=== PATIENT | male | born 1945 | race Caucasian/White ===

== ENCOUNTER 2020-05-06 12:25 | Inpatient (IN) ==
[2020-05-06] MEDS ORDERED: SODIUM CHLORIDE 0.9% 1000ML 1,000 ML IV SCH (12:30)
[2020-05-06] MEDS ORDERED: OPTIRAY 320 125ml IV ONE (12:34)
--- NOTE | 2020-05-06 12:45 | CT Scan Report ---
CT head/brain wo con CLINICAL HISTORY: 75 years-old Male with Stroke evaluation . Acute strokelike symptoms TECHNIQUE: Multiple axial CT images of the head were obtained without contrast. A dose lowering tech nique was utilized adhering to the principles of ALARA. COMPARISON: Head CT 11/02/2011. FINDINGS: No acute intracranial hemorrhage, midline shift, intracranial mass, hydrocephalus, territorial ischem ia or abnormal extra-axial collection. 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 Age-related involutional changes. Patchy white matter hypodensi ties have progressed from comparison and are suggestive of chronic microvascular ischemic disease. Se nescent calcifications of the left lentiform nucleus. Probable remote lacunar infarcts of the basal g [place].Ill-defined decreased attenuation of the right temporal lobe may be artifactual. The calvarium is intact. Prior bilateral lens replacement. The paranasal sinuses, mastoid air cells, and middle ea r cavities are clear. IMPRESSION: 1. No acute intracranial hemorrhage or midline shift. 2. Ill-defined low-attenuation of the right temporal lobe is likely artifactual. A subtle acute infar ct is considered less likely. 3. Age-related involutional changes with chronic microvascular ischemic disease and multiple remote i nfarcts as above. ACT 112: Negative or not required by law. The above report was generated using voice recognition software. It may contain grammatical, syntax o r spelling errors. Electronically signed by: John Reina M.D. 05/06/2020 12:43 PM
--- NOTE | 2020-05-06 12:51 | CT Scan Report ---
CTA ANGIOGRAPHY OF THE HEAD CLINICAL HISTORY: Stroke evaluation COMPARISON STUDY: Head CT November 02, 2011. TECHNIQUE: Helical axial images of the head were obtained following uneventful intravenous administr ation of 119 cc of Optiray 320. Sagittal and coronal reconstructions were viewed as well as maximal i ntensity projections on an independent 3-D workstation. Automated exposure control was utilized for the study. A dose lowering technique was utilized adhering to the principles of ALARA. CT DOSE: 1110.14 mGy.cm FINDINGS: Please note that the head CT will be reported separately. No acute intracranial hemorrhage, midline shift or mass effect is present. Ventricular system is unremarkable. The basilar cisterns ar e patent. The parenchyma is better depicted on the head CT. The bilateral M1, M2, A1 and A2 segments are patent. There is extensive calcified plaque within the bilateral cavernous carotids which makes e valuation for stenosis difficult. There is suspected moderate narrowing of the bilateral cavernous ca rotids. There is mild stenosis of the right MCA. No abrupt vessel cut off is noted. No intraluminal t hrombus is noted. There is severe stenosis of the proximal intracranial portion of the left vertebral artery due to calcified plaque. Bilateral posterior to indicating arteries are noted. There is sever e stenosis of the proximal left posterior cerebral artery. No intracranial aneurysm or dissection is noted. IMPRESSION: 1. No intraluminal thrombus or abrupt vessel cut off identified. 2. Severe multifocal stenoses within the intracranial vessels, as detailed above. Specifically, sever e stenosis of the proximal intracranial portion of the left vertebral artery and the left posterior c erebral artery. 2. No intracranial aneurysm. ACT 112: Negative or not required by law. Electronically signed by: Matthew Mims M.D. 05/06/2020 12:50 PM
--- NOTE | 2020-05-06 12:52 | CT Scan Report ---
CT angio neck with con CLINICAL HISTORY: 75 years-old Male with Stroke evaluation. Acute strokelike symptoms with weaknes s COMPARISON STUDY: Head CT and CTA had of same day TECHNIQUE: Following the IV administration of 119 mL of Optiray 320, CT angiogram of the neck was per formed from the aortic arch to the skull base. Images are reviewed in the axial, sagittal, and mustafa l planes. 3-D MIPS images are created and assessed. IV contrast was administered without complication . All measurements were calculated based on NASCET criteria. A dose lowering technique was utilized adhering to the principles of ALARA. FINDINGS: Mixed plaque of the thoracic aortic arch. Patency of the imaged bilateral subclavian arteri es. Mixed plaque of the common carotid arteries without high-grade stenosis. There is severe mixed pl aque of the bilateral carotid bulbs and proximal internal carotid arteries. This results in less than 50% stenosis on the right and approximately 60% stenosis on the left. There is calcified plaque of t he cavernous and supraclinoid segments of the internal carotid arteries with areas of at least modera te multifocal luminal narrowing. Multifocal luminal narrowing of the intracranial arteries. Codominant and patent vertebral arteries there is moderate stenosis at the origin of the left vertebr al artery secondary to calcified plaque. High-grade stenosis of the V4 segment left vertebral artery secondary to calcified plaque. There is at least moderate multifocal luminal narrowing of the distal bilateral vertebral arteries. Diminutive basilar artery. The lung apices are clear without pneumothorax. Soft tissues are unremarkable. No adenopathy or preve rtebral soft tissue swelling. Multilevel degenerative changes of the spine. No acute fracture. IMPRESSION: 1. 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 This results in less than 50% stenosis on the right and approximately 60% stenosis of the proximal left ICA. 2. Calcific plaque of the V4 segment left vertebral artery results in high-grade stenosis. ACT 112: Negative or not required by law. The above report was generated using voice recognition software. It may contain grammatical, syntax o r spelling errors. Electronically signed by: John Reina M.D. 05/06/2020 12:51 PM
--- NOTE | 2020-05-06 13:02 | Emergency Department Note ---
Impression & Plan CVA (cerebral vascular accident), Acute hyperglycemia, Atrial fibrillation, Abnormal ECG ED Provider Note NAME: DIXON RUIZ AGE: 75 SEX: M : 1945 ARRIVES VIA: Ambulance INFORMANT: Patient, the prehospital personnel, the patient significant other ED PROVIDER(S): Eric Chaparro DO CHIEF COMPLAINT: Weakness HPI: The patient is a 75-year-old male who presented to the emergency department for a possible stroke alert. The patient was made a stroke alert prior to arrival after the artist color separation called requesting a stroke alert on a patient who had a possible last known well time of approximately 8 AM. The history was very difficult to obtain because the patient's severe dysarthria and the patient significant other had a very difficult time articulating the last known well time. For this reason the patient was made a stroke alert until we could further obtain history. The patient had an appointment at [facility] today. He went to this appointment via medical transport van. He did go with his significant other. Apparently the patient was having problems at this appointment and did not speak at all. His spoke for him. The patient is able to articulate somewhat and states that he has no headache. He has no abdominal pain or chest pain. He denies having any nausea. According to the prehospital personnel the patient had right facial droop severe dysarthria to near aphasia as well as right upper extremity weakness. He does have a history of ischemic stroke in the past. He also has a history of peripheral artery disease. The patient was noted to be in atrial fibrillation prior to arrival. According to the prehospital personnel the 911 call was made at 1117 this morning. The artist color separation was on scene at 1138 this morning. ROS: See above HPI for pertinent positives & negatives. A total of 10 systems reviewed and were otherwise negative. PAST MEDICAL HISTORY: See Below PAST SURGICAL HISTORY: See Below FAMILY HISTORY: See Below SOCIAL HISTORY: See Below HOME MEDICATIONS: See Below ALLERGIES: See Below VITALS: See Below PHYSICAL EXAMINATION: GENERAL: The patient is awake and looking around the room. He appears to be very uncomfortable and anxious. EYES: The conjunctivae are clear. The pupils are round and reactive. EARS, NOSE, MOUTH AND THROAT: The nose is without any evidence of any deformity. Mucous membranes are moist. Tongue is midline. NECK: The neck is nontender and supple. RESPIRATORY: Normal respiratory effort is noted there is no evidence of wheezing rhonchi or rales CARDIOVASCULAR: Irregular rhythm was noted to auscultation. No definite murmur could be heard. GASTROINTESTINAL: The abdomen is moderately distended. There was no tenderness guarding or rigidity noted. MUSCULOSKELETAL/EXTREMITIES: Bilateral lower extremity amputations were noted. SKIN: There is no obvious evidence of any rash. There are no petechiae, pallor or cyanosis noted. NEUROLOGIC: The patient is awake and alert. He does follow commands slowly but appropriately. He is aphasic and I am unable to assess orientation at this time. The patient has a slight right-sided facial droop noted mostly at the corner of the mouth. He does not appear to have any forehead involvement. The patient has no drift in the upper extremities. He is able to hold each leg off the bed for greater than 5 seconds. The patient has symmetric patient accounts clerk strengths. MEDICAL DECISION MAKING: The patient is a 75-year-old male who presented to the emergency department for an evaluation of acute neurologic deficits. The patient was made a stroke alert prior to arrival because his history was very unclear and the onset of symptoms was very unclear. Ultimately it does appear the patient may have had the symptoms since this morning when he got up to go to doctor's appointment. His symptoms did slowly improve compared to the report we got from the artist color separation. Patient no longer has a drift his facial droop is very minimal and his dysar thria is continuing. I discussed patient's laboratory and radiographic studies with him as well as his significant other. The stroke neurologist from [facility] also evaluated the patient. At this time he is not a candidate for TPA given the onset of symptoms being early this morning. He also does not appear to have a large vessel occlusion. He was found to be in atrial fibrillation in the emergency department. I discussed his case with the on-call [facility] hospitalist. They will evaluate the patient in the emergency department for further management and disposition. He was also treated with IV fluids and IV insulin. Triage Nursing notes reviewed. Prior medical records reviewed Vital Signs: reviewed and remarkable for hypertension Differential diagnosis: Infection, dehydration, metabolic abnormality, hypo/hyperglycemia, electrolyte disturbance, anemia, hypoxia, cardiac sources, intracerebral event, toxicologic, neurologic, as well as other pathologies. ER treatment provided: See below Diagnostics interpreted by me: ECG: EKG was obtained in the emergency department. My interpretation is atrial fibrillation at 85 bpm. No PVCs were noted. Diffuse apical and low lateral ST depressions were noted. This was compared to a tracing from June 19, 2018. Atrial fibrillation has replaced normal sinus rhythm. The ST segment abnormalities are new compared to the previous tracing. Cardiac Monitoring: An order was placed for continuous cardiac monitoring. The monitor shows a rate of 89 with atrial fibrillation rhythm. Laboratory studies: As stated above and show below. Imaging studies: See below Consultation(s): 1240: I discussed this case with Dr. Olguin who is on-call for the [facility] stroke neurology team. She will evaluate the patient as we [facility] try to obtain history to get a better last known well time. 1400: I discussed this case with Bianca who is on-call for the [facility] hospitalist group. They will evaluate the patient in the emergency department for further management disposition. ED COURSE: Procedures: none PDMP:reviewed and no issues Critical Care: None Past Med/Surg History Medical History Anemia (Chronic) Arthritis (Chronic) CAD (coronary artery disease) (Chronic) s/p stent placement. 1 stent placed. patient thinks this was 3-4 years ago. CKD (chronic kidney disease), stage III (Chronic) CVA (cerebral vascular accident) (Chronic) Patient unsure of when this happened. Denied any current deficits related to the stroke. Depression (Chronic) Diabetes mellitus, type II (Chronic) GERD (gastroesophageal reflux disease) (Chronic) HLD (hyperlipidemia) (Chronic) HTN (hypertension) (Chronic) Neuropathy, diabetic (Chronic) Non-healing wound of amputation stump (Acute) s/p left 3rd toe ampuation on 06/24 PVD (peripheral vascular disease) (Chronic) Surgical History Amputated toe of left foot 06/2018. MAC. 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, former substance user) Preferred Language: Citizen Of [place] Communication Ability: Effective Visual Impairment: No Limitations Address Change Clerk Required: No Beliefs That Will Affect Care: None marital status: Current Living Situation: Spouse Other Information That Helps Us Care for You: No Feels Safe at Home: Yes Safety Concerns: Feels Safe At This Time Allergies Allergies Allergy/AdvReac Type Severity Reaction Status Date / Time No Known Allergies Allergy Unknown NONE Verified 05/06/20 13:38 Home Meds Home Medications Medication Instructions Recorded Confirmed acetaminophen [Children's Tylenol] 0 mg PO QID PRN 05/06/20 05/06/20 alum-mag hydroxide-simeth [Mintox 10 ml PO TID PRN 05/06/20 05/06/20 Maximum Strength] ascorbic acid (vitamin C) 500 mg PO TID 05/06/20 05/06/20 aspirin [Aspirin Childrens] 81 mg PO DAILY 05/06/20 05/06/20 atorvastatin 40 mg PO HS 05/06/20 05/06/20 bethanechol chloride 25 mg PO TID 05/06/20 05/06/20 calcium carbonate [Tums Extra 300 mg PO UD 05/06/20 05/06/20 Strength Smoothies] carvedilol 12.5 mg PO BID 05/06/20 05/06/20 cholecalciferol (vitamin D3) 50 mcg PO DAILY 05/06/20 05/06/20 [Vitamin D3] ferrous sulfate 220 mg PO TID 05/06/20 05/06/20 gabapentin 300 mg PO QID 05/06/20 05/06/20 insulin aspart U-100 [Novolog 10 unit SUBCUT BIDM 05/06/20 05/06/20 Flexpen U-100 Insulin] insulin detemir U-100 25 unit SUBCUT HS 05/06/20 05/06/20 melatonin 6 mg PO HS PRN 05/06/20 05/06/20 exwfyzfd-tfy-qcodjol gluconate 5 ml PO DAILY 05/06/20 05/06/20 [Centrum] sertraline 0 mg PO DAILY 05/06/20 05/06/20 tamsulosin [Flomax] 0.4 mg PO BID 05/06/20 05/06/20 Results & Data (ED) Vital Signs Vital Signs - 24 hr 05/06/20 12:50 05/06/20 13:08 05/06/20 13:18 Temperature 36.7 C Temperature Source Oral Pulse Rate 85 89 85 Pulse Rate from SpO2 Sensor 86 Respiratory Rate 20 20 21 Blood Pressure 193/90 H 196/91 H 168/90 H Blood Pressure Mean 124 110 137 Pulse Oximetry 96 96 96 Oxygen Delivery Method Room Air Room Air Room Air Sepsis Recent Fever Within 48 Hours No Sepsis New/Unexplained Change in Mental Status Yes Sepsis Action Taken by Nursing No Action Required 05/06/20 13:27 05/06/20 13:30 Temperature Temperature Source Pulse Rate 82 82 Pulse Rate from SpO2 Sensor 83 82 Respiratory Rate 20 20 Blood Pressure 166/89 H 153/88 H Blood Pressure Mean 111 104 Pulse Oximetry 97 95 Oxygen Delivery Method Room Air Room Air Sepsis Recent Fever Within 48 Hours Sepsis New/Unexplained Change in Mental Status Sepsis Action Taken by [facility] Medications Current Medication List: was personally reviewed by me Laboratory Data Attestation: I reviewed the patient's lab results. Result diagrams: 05/07/20 06:26 05/07/20 06:26 Lab Results 05/06/20 05/06/20 05/06/20 Range/Units 12:22 12:22 12:22 WBC 11.92 H (4.8-10.8) K/uL RBC 3.60 L (4.7-6.1) M/uL Hgb 11.2 L (14.0-18.0) g/dL Hct 33.8 L (42-52) % MCV 93.9 (80-100) fL MCH 31.1 (25-34) pg MCHC 33.1 (32-36) g/dL RDW Std Deviation 43.5 (36.4-46.3) fL RDW Coeff of Star 12.7 (11.5-14.5) % Plt Count 293 (130-400) K/uL MPV 10.7 H (7.4-10.4) fL Immature Gran % (Auto) 1.4 % Neut % (Auto) 58.6 % Lymph % (Auto) 28.7 % [place] % (Auto) 7.6 % Eos % (Auto) 3.4 % Baso % (Auto) 0.3 % Neut # (Auto) 6.99 H (1.4-6.5) K/uL Lymph # (Auto) 3.42 H (1.2-3.4) K/uL [place] # (Auto) 0.90 H (0.11-0.59) K/uL Eos # (Auto) 0.40 (0-0.5) K/uL Baso # (Auto) 0.04 (0-0.2) K/uL Immature Gran # (Auto) 0.17 H (0.00-0.02) K/uL PT 10.0 (9.0-12.0) Seconds INR 0.9 (0.9-1.1) APTT 22.0 (21.0-31.0) Seconds PTT Ratio 0.8 Sodium 136 (136-145) mmol/L Potassium 4.8 (3.5-5.1) mmol/L Chloride 104 (98-107) mmol/L Carbon Dioxide 23 (21-32) mmol/L Anion Gap 9.0 (3-11) BUN 25 H (7-18) mg/dl Creatinine 1.88 H (0.6-1.4) mg/dl Est Cr Clr Drug Dosing Not Reportable Est GFR ( Amer) 40.2 Est GFR (Non-Af Amer) 34.7 BUN/Creatinine Ratio 13.1 (10-20) Glucose 335 H* (70-99) mg/dl POC Glucose (70-99) mg/dl Calcium 9.9 (8.5-10.1) mg/dl Magnesium 1.9 (1.8-2.4) mg/dl Total Bilirubin 0.3 (0.2-1) mg/dl AST 24 (15-37) U/L ALT 29 (12-78) U/L Alkaline Phosphatase 70 (45-117) U/L Troponin I < 0.015 (0-0.045) ng/ml Total Protein 6.9 (6.4-8.2) gm/dl Albumin 2.9 L (3.4-5.0) gm/dl Globulin 4.0 (2.5-4.0) gm/dl Albumin/Globulin Ratio 0.7 L (0.9-2) Beta-Hydroxybutyric Acd (0.2-2.81) mg/dl 05/06/20 05/06/20 Range/Units 12:46 14:05 WBC (4.8-10.8) K/uL RBC (4.7-6.1) M/uL Hgb (14.0-18.0) g/dL Hct (42-52) % MCV (80-100) fL MCH (25-34) pg MCHC (32-36) g/dL RDW Std Deviation (36.4-46.3) fL RDW Coeff of Star (11.5-14.5) % Plt Count (130-400) K/uL MPV (7.4-10.4) fL Immature Gran % (Auto) % Neut % (Auto) % Lymph % (Auto) % [place] % (Auto) % Eos % (Auto) % Baso % (Auto) % Neut # (Auto) (1.4-6.5) K/uL Lymph # (Auto) (1.2-3.4) K/uL [place] # (Auto) (0.11-0.59) K/uL Eos # (Auto) (0-0.5) K/uL Baso # (Auto) (0-0.2) K/uL Immature Gran # (Auto) (0.00-0.02) K/uL PT (9.0-12.0) Seconds INR (0.9-1.1) APTT (21.0-31.0) Seconds PTT Ratio Sodium (136-145) mmol/L Potassium (3.5-5.1) mmol/L Chloride (98-107) mmol/L Carbon Dioxide (21-32) mmol/L Anion Gap (3-11) BUN (7-18) mg/dl Creatinine (0.6-1.4) mg/dl Est Cr Clr Drug Dosing Est GFR ( Amer) Est GFR (Non-Af Amer) BUN/Creatinine Ratio (10-20) Glucose (70-99) mg/dl POC Glucose 366 H* 369 H* (70-99) mg/dl Calcium (8.5-10.1) mg/dl Magnesium (1.8-2.4) mg/dl Total Bilirubin (0.2-1) mg/dl AST (15-37) U/L ALT (12-78) U/L Alkaline Phosphatase (45-117) U/L Troponin I (0-0.045) ng/ml Total Protein (6.4-8.2) gm/dl Albumin (3.4-5.0) gm/dl Globulin (2.5-4.0) gm/dl Albumin/Globulin Ratio (0.9-2) Beta-Hydroxybutyric Acd (0.2-2.81) mg/dl Administered Medications Aspirin (Ecotrin Ectab) 81 mg PO [facility] Stop: 06/05/20 17:29 Last Admin: 05/07/20 09:14 Dose: 81 mg Documented by: [id number] Admin: 05/06/20 18:11 Dose: 81 mg Documented by: [id number] Atorvastatin Calcium (Lipitor) 40 mg PO [facility] Stop: 06/05/20 17:29 Last Admin: 05/07/20 09:14 Dose: 40 mg Documented by: [id number] Admin: 05/06/20 18:11 Dose: 40 mg Documented by: [id number] Clopidogrel Bisulfate (Plavix) 75 mg PO [facility] Stop: 06/06/20 08:59 Last Admin: 05/07/20 09:14 Dose: 75 mg Documented by: [id number] Heparin Sodium (Porcine) (Heparin Sodium (Porcine)) 5,000 units SQ Q8 [facility] Stop: 06/05/20 21:59 Last Admin: 05/07/20 13:40 Dose: Not Given Documented by: [id number] Admin: 05/07/20 06:20 Dose: 5,000 units Documented by: [id number] Cosigned by: [id number] Admin: 05/06/20 21:37 Dose: 5,000 units Documented by: [id number] Cosigned by: [id number] Lorazepam (Ativan) 0.5 mg in 1 mls @ 1 mls/min IV TODAY@1215 [facility] Stop: 05/07/20 16:00 Last Admin: 05/07/20 12:23 Dose: 1 mls/min Documented by: [id number] Insulin Aspart (Novolog Flexpen) 0 units SC ACHS [facility]; Protocol Stop: 06/06/20 07:29 Last Admin: 05/07/20 12:26 Dose: 5 units Documented by: [id number] Cosigned by: [id number] Admin: 05/07/20 09:16 Dose: 5 units Documented by: [id number] Cosigned by: [id number] Discontinued Medications Alprazolam (Xanax) 0.5 mg PO NOW STA Stop: 05/07/20 10:12 Last Admin: 05/07/20 11:45 Dose: Not Given Documented by: [id number] Alprazolam (Xanax) Confirm Administered Dose 0.5 mg .ROUTE .STK-MED ONE Stop: 05/07/20 10:14 Last Admin: 05/07/20 11:46 Dose: Not Given Documented by: [id number] Aspirin (Aspirin) 300 mg IA ONE ONE Stop: 05/06/20 16:01 Last Admin: 05/06/20 17:06 Dose: Not Given Documented by: [id number] Clopidogrel Bisulfate (Plavix) 300 mg PO NOW STA Stop: 05/06/20 17:21 Last Admin: 05/06/20 18:10 Dose: 300 mg Documented by: [id number] Sodium Chloride (Nss 1000ml) 1,000 mls @ 50 mls/hr IV .Q20H MIK Stop: 06/05/20 12:29 Last Infusion: 05/06/20 15:50 Dose: 0 mls/hr Documented by: [id number] Admin: 05/06/20 13:12 Dose: 50 mls/hr Documented by: [id number] Sodium Chloride (Nss 1000ml) 500 mls @ 999 mls/hr IV .Q31M ONE Stop: 05/06/20 14:13 Last Infusion: 05/06/20 14:56 Dose: 0 mls/hr Documented by: [id number] Admin: 05/06/20 14:12 Dose: 999 mls/hr Documented by: [id number] Sodium Chloride (Nss 1000ml) 1,000 mls @ 50 mls/hr IV .Q20H MIK Stop: 05/08/20 07:49 Last Infusion: 05/07/20 13:38 Dose: 0 mls/hr Documented by: [id number] Infusion: 05/07/20 06:00 Dose: 50 mls/hr Documented by: [id number] Admin: 05/07/20 02:27 Dose: 100 mls/hr Documented by: [id number] Infusion: 05/07/20 02:27 Dose: 100 mls/hr Documented by: [id number] Admin: 05/06/20 17:06 Dose: 100 mls/hr Documented by: [id number] Insulin Aspart (Novolog Flexpen) 0 units SC Q4 MIK; Protocol Stop: 06/05/20 16:14 Last Admin: 05/06/20 21:36 Dose: 5 units Documented by: [id number] Cosigned by: [id number] Admin: 05/06/20 17:05 Dose: 7 units Documented by: [id number] Cosigned by: [id number] Insulin Aspart (Novolog Flexpen) 0 units SC 0000,0400 [facility]K; Protocol Stop: 05/07/20 04:01 Last Admin: 05/07/20 05:02 Dose: 1 units Documented by: [id number] Cosigned by: [id number] Admin: 05/07/20 01:09 Dose: 2 units Documented by: [id number] Cosigned by: [id number] Insulin Detemir (Levemir Flextouch) 25 units SC ONE ONE; Protocol Stop: 05/06/20 17:31 Last Admin: 05/06/20 18:12 Dose: 25 units Documented by: [id number] Cosigned by: [id number] Insulin Detemir (Levemir Flextouch) 8 units SC ONE ONE; Protocol Stop: 05/07/20 08:01 Last Admin: 05/07/20 09:15 Dose: 8 units Documented by: [id number] Cosigned by: [id number] Insulin Human Regular (Novolin R U-100 Per Unit) 4 units IV NOW STA Stop: 05/06/20 13:44 Last Admin: 05/06/20 14:12 Dose: 4 units Documented by: [id number] Cosigned by: [id number] Ioversol (Optiray 320 125ml) 119 ml IV ONCE ONE Stop: 05/06/20 12:35 Last Admin: 05/06/20 12:35 Dose: 119 ml Documented by: [id number] Labetalol HCl (Normodyne) 10 mg IV NOW STA Stop: 05/06/20 13:18 Last Admin: 05/06/20 14:19 Dose: Not Given Documented by: [id number] Metoprolol Tartrate (Lopressor) 2.5 mg IV NOW STA Stop: 05/07/20 05:56 Last Admin: 05/07/20 06:27 Dose: 2.5 mg Documented by: [id number] Olanzapine (Zyprexa) 2.5 mg IM NOW STA Stop: 05/07/20 03:56 Last Admin: 05/07/20 04:40 Dose: 2.5 mg Documented by: [id number] Imaging Data Radiologist's Impression: XR chest 1V portable CLINICAL HISTORY: weak COMPARISON STUDY: Chest radiograph June 19, 2018. FINDINGS: Lung volumes are at the lower limits of normal. Lungs are clear. There is no pneumothorax or pleural effusion. Cardiomegaly is unchanged. Mediastinal contours are normal. There is no evidence for pulmonary edema. IMPRESSION: No acute cardiopulmonary findings. No change in appearance of the chest. ACT 112: Negative or not required by law. Electronically signed by: Matthew Mims M.D. 05/06/2020 1:05 PM Dictated: 05/06/20 1304 Transcribed: 05/06/[address] angio neck with con CLINICAL HISTORY: 75 years-old Male with Stroke evaluation. Acute strokelike symptoms with weakness COMPARISON STUDY: Head CT and CTA had of same day TECHNIQUE: Following the IV administration of 119 mL of Optiray 320, CT angiogra m of the neck was performed from the aortic arch to the skull base. Images are reviewed in the axial, sagittal, and coronal planes. 3-D MIPS images are created and assessed. IV contrast was administered without complication. All measurements were calculated based on NASCET criteria. A dose lowering technique was utilized adhering to the principles of ALARA. FINDINGS: Mixed plaque of the thoracic aortic arch. Patency of the imaged bilateral subclavian arteries. Mixed plaque of the common carotid arteries without high-grade stenosis. There is severe mixed plaque of the bilateral carotid bulbs and proximal internal carotid arteries. This results in less than 50% stenosis on the right and approximately 60% stenosis on the left. There is calcified plaque of the cavernous and supraclinoid segments of the internal carotid arteries with areas of at least moderate multifocal luminal narrowing. Multifocal luminal narrowing of the intracranial arteries. Codominant and patent vertebral arteries there is moderate stenosis at the origin of the left vertebral artery secondary to calcified plaque. High-grade stenosis of the V4 segment left vertebral artery secondary to calcified plaque. There is at least moderate multifocal luminal narrowing of the distal bilateral vertebral arteries. Diminutive basilar artery. The lung apices are clear without pneumothorax. Soft tissues are unremarkable. No adenopathy or prevertebral soft tissue swelling. Multilevel degenerative changes of the spine. No acute fracture. IMPRESSION: 1. Mixed plaque of the bilateral carotid bulbs and proximal internal carotid arteries, left greater than right. This results in less than 50% stenosis on the right and approximately 60% stenosis of the proximal left ICA. 2. Calcific plaque of the V4 segment left vertebral artery results in high-grade stenosis. ACT 112: Negative or not required by law. The above report was generated using voice recognition software. It may contain grammatical, syntax or spelling errors. Electronically signed by: John Reina M.D. 05/06/2020 12:51 PM Dictated: 05/06/20 1244 Transcribed: 05/06/20 1244 CTA ANGIOGRAPHY OF THE HEAD CLINICAL HISTORY: Stroke evaluation COMPARISON STUDY: Head CT November 02, 2011. TECHNIQUE: Helical axial images of the head were obtained following uneventful intravenous administration of 119 cc of Optiray 320. Sagittal and coronal reconstructions were viewed as well as maximal intensity projections on an independent 3-D workstation. Automated exposure control was utilized for the study. A dose lowering technique was utilized adhering to the principles of ALARA. CT DOSE: 1110.14 mGy.cm FINDINGS: Please note that the head CT will be reported separately. No acute intracranial hemorrhage, midline shift or mass effect is present. Ventricular system is unremarkable. The basilar cisterns are patent. The parenchyma is better depicted on the head CT. The bilateral M1, M2, A1 and A2 segments are patent. There is extensive calcified plaque within the bilateral cavernous carotids which makes evaluation for stenosis difficult. There is suspected moderate narrowing of the bilateral cavernous carotids. There is mild stenosis of the right MCA. No abrupt vessel cut off is noted. No intraluminal thrombus is noted. There is severe stenosis of the proximal intracranial portion of the left vertebral artery due to calcified plaque. Bilateral posterior to indicating arteries are noted. There is severe stenosis of the proximal left posterior cerebral artery. No intracranial aneurysm or dissection is noted. IMPRESSION: 1. No intraluminal thrombus or abrupt vessel cut off identified. 2. Severe multifocal stenoses within the intracranial vessels, as detailed above. Specifically, severe stenosis of the proximal intracranial portion of the left vertebral artery and the left posterior cerebral artery. 2. No intracranial aneurysm. ACT 112: Negative or not required by law. Electronically signed by: Matthew Mims M.D. 05/06/2020 12:50 PM Dictated: 05/06/20 1242 Transcribed: 05/06/[address] head/brain wo con CLINICAL HISTORY: 75 years-old Male with Stroke evaluation . Acute strokelike symptoms TECHNIQUE: Multiple axial CT images of the head were obtained without contrast. A dose lowering technique was utilized adhering to the principles of ALARA. COMPARISON: Head CT 11/02/2011. FINDINGS: No acute intracranial hemorrhage, midline shift, intracranial mass, hydrocephalus, territorial ischemia or abnormal extra-axial collection. 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 Age-related involutional changes. Patchy white matter hypodensities have progressed from comparison and are suggestive of chronic microvascular ischemic disease. Senescent calcifications of the left lentiform nucleus. Probable remote lacunar infarcts of the basal g[place].Ill-defined decreased attenuation of the right temporal lobe may be artifactual. The calvarium is intact. Prior bilateral lens replacement. The paranasal sinuses, mastoid air cells, and middle ear cavities are clear. IMPRESSION: 1. No acute intracranial hemorrhage or midline shift. 2. Ill-defined low-attenuation of the right temporal lobe is likely artifactual. A subtle acute infarct is considered less likely. 3. Age-related involutional changes with chronic microvascular ischemic disease and multiple remote infarcts as above. ACT 112: Negative or not required by law. The above report was generated using voice recognition software. It may contain grammatical, syntax or spelling errors. Electronically signed by: John Reina M.D. 05/06/2020 12:43 PM Dictated: 05/06/20 1237 Transcribed: 05/06/20 1237 Blood Pressure Blood Pressure Findings: Elevated blood pressure Blood Pressure Disposition: further management by hospitalist Discharge Plan Visit Data *Final* Discharge Date/Time: 05/06/20 15:29 Chief Complaint: Stroke Alert Stated Complaint: stroke alert ED Provider: Eric Chaparro Discharge Problem: CVA (cerebral vascular accident), Acute hyperglycemia, Atrial fibrillation, A bnormal ECG Patient Disposition: Admitted As Inpatient Condition: Good Discharge Instructions Interventions: ED Discharge Assessment Last Done: 05/06/20 15:29 Discharge Problem: CVA (cerebral vascular accident) Qualifiers: CVA mechanism: unspecified Qualified Code(s): I63.9 - Cerebral infarction, unspecified Atrial fibrillation Qualifiers: Atrial fibrillation type: unspecified Qualified Code(s): I48.91 - Unspecified atrial fibrillation
--- NOTE | 2020-05-06 13:06 | XRay Report ---
XR chest 1V portable CLINICAL HISTORY: weak COMPARISON STUDY: Chest radiograph June 19, 2018. FINDINGS: Lung volumes are at the lower limits of normal. Lungs are clear. There is no pneumothorax o r pleural effusion. Cardiomegaly is unchanged. Mediastinal contours are normal. There is no evidence for pulmonary edema. IMPRESSION: No acute cardiopulmonary findings. No change in appearance of the chest. ACT 112: Negative or not required by law. Electronically signed by: Matthew Mims M.D. 05/06/2020 1:05 PM
[2020-05-06 13:09] LABS: Basophils # (auto) 0.04 K/uL (0-0.2); Basophils % (auto) 0.3 %; Eosinophils % (auto) 3.4 %; Hematocrit (blood only) 33.8 % (42-52); Hemoglobin 11.2 g/dL (14.0-18.0); Immature Granulocytes # (auto) 0.17 K/uL (0.00-0.02); Immature Granulocytes % (auto) 1.4 %; Lymphocytes # (auto) 3.42 K/uL (1.2-3.4); Lymphocytes % (auto) 28.7 %; Mean Corpuscular Hemoglobin 31.1 pg (25-34); Mean Corpuscular Hgb Conc 33.1 g/dL (32-36); Mean Corpuscular Volume 93.9 fL (80-100); Mean Platelet Volume 10.7 fL (7.4-10.4); Monocytes % (auto) 7.6 %; Neutrophils # (auto) 6.99 K/uL (1.4-6.5); Neutrophils % (auto) 58.6 %; Platelet Count 293 K/uL (130-400); RDW Coefficient of Variation 12.7 % (11.5-14.5); RDW Standard Deviation 43.5 fL (36.4-46.3); White Blood Count 11.92 K/uL (4.8-10.8)
[2020-05-06] MEDS ORDERED: LABETALOL HCL IV 5 MG/ML 20ML IV STA (13:17)
[2020-05-06 13:25] LABS: INR 0.9 (0.9-1.1); Partial Thromboplastin Ratio 0.8
--- OUTSIDE RECORDS SUMMARY | 2020-05-06 13:25 | External Medical Summary | Continuity of Care Document ---
:1945 Author Name Rocio Thomson, Provider Address Unavailable Unavailable , Care Team Providers Name Role Phone Loreto Dickinson DO Unavailable [email or web address], NO Unavailable Unavailable Unavailable Unavailable Unavailable Problems Active medical history not documented Allergies and Adverse Reactions Allergy history not documented Medications Medications not documented Procedures Procedures not documented Immunizations Immunizations not documented Plan of Treatment Planned Observations Planned Goals not documented Results No Known Results Results not documented Encounters Appointment; Loreto Dickinson DO 30-Oct-2018 11:00 Encounter Diagnosis: Problem not documented
[2020-05-06 13:37] LABS: Alanine Aminotransferase 29 U/L (12-78); Albumin Globulin Ratio 0.7 (0.9-2); Albumin Level 2.9 gm/dl (3.4-5.0); Alkaline Phosphatase 70 U/L (45-117); Aspartate Aminotransferase 24 U/L (15-37); BUN Creatinine Ratio 13.1 (10-20); Bilirubin,Total 0.3 mg/dl (0.2-1); Blood Urea Nitrogen 25 mg/dl (7-18); Calcium 9.9 mg/dl (8.5-10.1); Carbon Dioxide 23 mmol/L (21-32); Chloride 104 mmol/L (98-107); Est GFR (African American) 40.2; Est GFR (Non-African American) 34.7; Glucose 335 mg/dl (70-99); Magnesium 1.9 mg/dl (1.8-2.4); Potassium 4.8 mmol/L (3.5-5.1); Sodium 136 mmol/L (136-145); Total Protein 6.9 gm/dl (6.4-8.2); Troponin I < 0.015 ng/ml (0-0.045)
[2020-05-06] MEDS ORDERED: SODIUM CHLORIDE 0.9% 1000ML 500 ML IV ONE (13:43)
[2020-05-06] MEDS ORDERED: NovoLIN-R INSULIN PER UNIT CHARGE IV STA (13:43)
--- NOTE | 2020-05-06 15:23 | History & Physical Report ---
Date of Service May 06, 2020 Assessment & Plan (1) Dysphasia: (2) Stroke-like symptoms: Pt is 75 y/o M with PMH CVA, DM II, HTN, HLD, CAD s/p stent, PVD, s/p bilateral BKA, CKD III presented to ER for right arm weakness and dysphasia. Reported pt was not very talkative this morning and not "acting right" per pt's around 7am. Then around 9 AM today and noticed that patient's speech was garbled and then he could no longer talk. She reports they later called EMS and patient was transported to [facility] ER. Upon ER arrival patient with expressive aphasia, dysarthria, right facial droop, right arm weakness. CT HEAD: No acute intracranial hemorrhage or midline shift. Ill-defined low- attenuation of the right temporal lobe is likely artifactual. A subtle acute infarct is considered less likely. Age-related involutional changes with chronic microvascular ischemic disease and multiple remote infarcts as above. CTA HEAD:1. No intraluminal thrombus or abrupt vessel cut off identified. 2. Severe multifocal stenoses within the intracranial vessels, as detailed above. Specifically, severe stenosis of the proximal intracranial portion of the left vertebral artery and the left posterior cerebral artery. 2. No intracranial aneurysm. CTA NECK: 1. Mixed plaque of the bilateral carotid bulbs and proximal internal carotid arteries, left greater than right. This results in less than 50% stenosis on the right and approximately 60% stenosis of the proximal left ICA. 2. Calcific plaque of the V4 segment left vertebral artery results in high-grade stenosis. Neuro tele stroke at [facility] consulted and patient outside TPA window and recommended loading with plavix, starting plavix daily and continuing daily aspirin 81mg, statin -Tele to monitor for arrhythmias; ER staff report EMS reported a-fib -EKG in am -lipid panel and A1c in am -MRI brain -echo with bubble study -aspiration precautions - Will make NPO and hold oral meds at this time as did not pass dysphagia screen -Speech consult -Plan to start Plavix and continue aspirin, atorvastatin when able to take p.o. -PT/OT consult -allow permissive HTN, labetaolol SBP>220 or DBP>120 in 1st 24 hrs -neurology consult (3) Abdominal discomfort: Pt had pointed to lower abdomen as area of discomfort. Denies N/V/D/C, dysuria -KUB unremarkable -Obtain UA -Closely monitor and if worsening discomfort consider further imaging (4) Diabetes mellitus, type II: A1c 9.5 in 2018 Random BSG 335 -NovoLog Lantus sliding scale per protocol -Glycemic consult for assistance (5) HTN (hypertension): -Continue carvedilol when able to take p.o. -We will allow permissive hypertension initially (6) CAD (coronary artery disease): S/p stent -Continue carvedilol, aspirin, atorvastatin when able to take p.o. (7) CKD (chronic kidney disease), stage III: Cr: 1.8. Records from 2018 with Cr: ~1.6 -Renal functions, avoid nephrotoxic agents when possible (8) PVD (peripheral vascular disease): S/p bilateral BKA (9) Anemia: Chronic anemia Hgb: 11.2. Hgb: 9-11 in 2018 -Plan to resume iron supplement when able to take p.o. DVT Prophylaxis -Heparin SQ Full Code as per discussion with pt and pt's Maria M Follows with [facility] for routine care Pt was seen and care coordinated with Dr Padilla. See addendum History of Present Illness Chief Complaint: Dysphasia and right arm weakness Primary Care Provider: [facility] Pt is 75 y/o M with PMH CVA, DM II, HTN, HLD, CAD s/p stent, PVD, s/p bilateral BKA, CKD III presented to ER for right arm weakness and dysphasia. History obtained from ER staff and patient's . Limited history can be obtained from patient secondary to dysphasia. Was able to speak with pt's on the phone. She reports pt was up and out to a doctor's appointment today around 7 AM. Patient's states that patient seemed "not acting right this morning" he was not talking much. Reports returned home around 9 AM today and noticed that patient's speech was garbled and then he could no longer talk. She reports they later called EMS and patient was transported to [facility] ER. Upon ER arrival patient with expressive aphasia, dysarthria, right facial droop, right arm weakness. CTA head with high-grade stenosis left [employer] REPRES[employer] and left intracranial vertebral artery. Neuro tele stroke consulted and patient outside TPA window. Patient is able to shake head "yes or no" to questions. He denies headache, dizziness, vision changes. Reports decreased sensation to right side of face with palpation. He points to lower abdomen as area of discomfort. Denies nausea, vomiting, diarrhea, fever, chills, dysuria, hematuria. Patient's reports that patient took his morning medicines today. Pt has prosthetics legs however hasn't been using. Pt has med list from [facility] dated 05/02/2020. Allergies Allergy/AdvReac Type Severity Reaction Status Date / Time No Known Allergies Allergy Unknown NONE Verified 05/06/20 13:38 Home Medications Home Medications Medication Instructions Recorded Confirmed Type acetaminophen [Children's Tylenol] 0 mg PO QID PRN 05/06/20 05/06/20 History alum-mag hydroxide-simeth [Mintox 10 ml PO TID PRN 05/06/20 05/06/20 History Maximum Strength] ascorbic acid (vitamin C) 500 mg PO TID 05/06/20 05/06/20 History aspirin [Aspirin Childrens] 81 mg PO DAILY 05/06/20 05/06/20 History atorvastatin 40 mg PO HS 05/06/20 05/06/20 History bethanechol chloride 25 mg PO TID 05/06/20 05/06/20 History calcium carbonate [Tums Extra 300 mg PO UD 05/06/20 05/06/20 History Strength Smoothies] carvedilol 12.5 mg PO BID 05/06/20 05/06/20 History cholecalciferol (vitamin D3) 50 mcg PO DAILY 05/06/20 05/06/20 History [Vitamin D3] ferrous sulfate 220 mg PO TID 05/06/20 05/06/20 History gabapentin 300 mg PO QID 05/06/20 05/06/20 History insulin aspart U-100 [Novolog 10 unit SUBCUT BIDM 05/06/20 05/06/20 History Flexpen U-100 Insulin] insulin detemir U-100 25 unit SUBCUT HS 05/06/20 05/06/20 History melatonin 6 mg PO HS PRN 05/06/20 05/06/20 History wjpcmbln-ixd-yvcgjpd gluconate 5 ml PO DAILY 05/06/20 05/06/20 History [Centrum] sertraline 0 mg PO DAILY 05/06/20 05/06/20 History tamsulosin [Flomax] 0.4 mg PO BID 05/06/20 05/06/20 History Past Med/Surg History Medical History Anemia (Chronic) Arthritis (Chronic) CAD (coronary artery disease) (Chronic) s/p stent placement. 1 stent placed. patient thinks this was 3-4 years ago. CKD (chronic kidney disease), stage III (Chronic) CVA (cerebral vascular accident) (Chronic) Patient unsure of when this happened. Denied any current deficits related to the stroke. Depression (Chronic) Diabetes mellitus, type II (Chronic) GERD (gastroesophageal reflux disease) (Chronic) HLD (hyperlipidemia) (Chronic) HTN (hypertension) (Chronic) Neuropathy, diabetic (Chronic) Non-healing wound of amputation stump (Acute) s/p left 3rd toe ampuation on 06/24 PVD (peripheral vascular disease) (Chronic) Surgical History Amputated toe of left foot 06/2018. MAC. 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, former substance user) Preferred Language: Citizen Of [place] Communication Ability: Effective Visual Impairment: No Limitations Compound Worker Required: No Beliefs That Will Affect Care: None marital status: Current Living Situation: Spouse Other Information That Helps Us Care for You: No Feels Safe at Home: Yes Safety Concerns: Feels Safe At This Time Review of Systems Review of Systems: All systems reviewed & are unremarkable except as noted in HPI & below Physical Exam Physical Exam: General: no acute distress, obese Head: normocephalic, atraumatic Eyes: PERRL, EOM's intact, conjunctiva non-injected, anicteric ENT: normal inspection external ears, nose, mucous membranes moist Neck: supple, trachea midline Lungs: clear, no respiratory distress, no wheezing/rhonchi/rales CV: RRR, no murmur, no pretibial edema Abd: normal BS, soft, non-tender Ext: bilateral BKA, no erythema or cyanosis Neuro: Alert, +expressive aphasia, +dysarthria, pt appears to have full comprehension and able to shake head "yes or no" for questioning, facial sensation decreased right side, mild right sided facial droop, hearing grossly intact, Tongue is midline, right upper extremity decreased strength, able to flex bilateral legs at hips, has laura BKA Skin: warm, dry Results & Data Results & Data ([facility]) Vital Signs (Past 12 Hours) Vital Signs Temp Pulse Resp BP Pulse Ox 05/06/20 15:00 85 19 05/06/20 14:45 77 16 155/81 H 05/06/20 14:32 82 20 98 05/06/20 14:30 81 20 98 05/06/20 14:18 80 19 05/06/20 14:17 81 21 111/76 05/06/20 14:02 82 22 126/75 05/06/20 14:00 82 18 05/06/20 13:52 80 17 134/78 90 05/06/20 13:46 79 13 160/81 H 05/06/20 13:30 82 20 153/88 H 95 05/06/20 13:27 82 20 166/89 H 97 05/06/20 13:18 85 21 168/90 H 96 05/06/20 13:08 89 20 196/91 H 96 05/06/20 12:50 36.7 C 85 20 193/90 H 96 Laboratory Results Short CBC 05/06/20 Range/Units 12:22 WBC 11.92 H (4.8-10.8) K/uL Hgb 11.2 L (14.0-18.0) g/dL Hct 33.8 L (42-52) % Plt Count 293 (130-400) K/uL BMP 05/06/20 12:22 Sodium 136 Potassium 4.8 Chloride 104 Carbon Dioxide 23 BUN 25 H Creatinine 1.88 H Glucose 335 H* Calcium 9.9 Cardiac Enzymes 05/06/20 Range/Units 12:22 Troponin I < 0.015 (0-0.045) ng/ml Liver Function 05/06/20 Range/Units 12:22 Total Bilirubin 0.3 (0.2-1) mg/dl AST 24 (15-37) U/L ALT 29 (12-78) U/L Alkaline Phosphatase 70 (45-117) U/L Albumin 2.9 L (3.4-5.0) gm/dl Urine 05/06/20 Range/Units 18:25 Urine Color Yellow Urine Appearance Clear (Clear) Urine pH 5.0 (4.5-7.5) Ur Specific [place] > 1.045 H (1.000-1.030) Urine Protein 1+ H (Negative) Urine Glucose (UA) 3+ H (Negative) Diagnostic Findings CT HEAD: IMPRESSION: 1. No acute intracranial hemorrhage or midline shift. 2. Ill-defined low-attenuation of the right temporal lobe is likely artifactual. A subtle acute infarct is considered less likely. 3. Age-related involutional changes with chronic microvascular ischemic disease and multiple remote infarcts as above. CTA HEAD: IMPRESSION: 1. No intraluminal thrombus or abrupt vessel cut off identified. 2. Severe multifocal stenoses within the intracranial vessels, as detailed above. Specifically, severe stenosis of the proximal intracranial portion of the left vertebral artery and the left posterior cerebral artery. 2. No intracranial aneurysm. CTA NECK: IMPRESSION: 1. Mixed plaque of the bilateral carotid bulbs and proximal internal carotid arteries, left greater than right. This results in less than 50% stenosis on the right and approximately 60% stenosis of the proximal left ICA. 2. Calcific plaque of the V4 segment left vertebral artery results in high-grade stenosis. CXR: IMPRESSION: No acute cardiopulmonary findings. No change in appearance of the chest. KUB: IMPRESSION: Normal study. Code Status & VTE Plan VTE Prophylaxis Plan VTE Prophylaxis will be ordered: Yes Supervising Physician Co-Signing Physician Notes Patient was seen and examined by me, care coordinated with Peggy Hernandez PA-C. Please see her note above for further details. Mr. Goetz is a 75-year-old male, with history of hypertension, hyperlipidemia, CAD status post stent, PVD, diabetes mellitus type 2, CKD stage III, bilateral below-knee amputations, who presented to ED with dysarthria and right facial droop, and upper extremities weakness. Patient was first seen at his physician's office this morning, and was accompanied by his . At that appointment patient was not speaking, and his was speaking for him. Because of dysarthria, patient was then sent to ED as a stroke alert. CT head showed multiple remote infarcts and chronic microvascular ischemic disease. Head CTA showed severe multifocal stenoses within intracranial vessels, severe stenosis of proximal intracranial portion of left vertebral artery and left posterior cerebral artery. No intraluminal thrombus or abrupt vessel cut off identified, and no aneurysm noted. [facility] neurology was consulted in the emergency room, patient was not a candidate for TPA due to vague onset of symptoms. There was also concern for possible new onset A. fib in the emergency room. Currently nobody is accompanying patient in the emergency room. Unfortunately patient is dysarthric and can only answer simple questions. Denies any fevers, chills, chest pain, palpitations, shortness of breath. Reports mild lower abdominal discomfort. He seems to be alert and oriented, he is able to answer yes/no questions without difficulty. However patient cannot communicate/speak in full sentences. He is able to move his lower extremities, he has bilateral below-knee amputations. He is able to move his upper extremities however he has difficulty forming a fist/noted weakness in his fingers. Abdomen is soft, obese, positive bowel sounds. Seems to be mildly tender in suprapubic area. Skin otherwise warm, dry, no rashes or lesions noted. In the ED, there was concern for new onset A. fib. Heart sounds currently seems to be regular. Will repeat EKG. Will obtain KUB and bladder scan to further evaluate possible tenderness in suprapubic area. Per [facility] neurology, recommended to load patient with Plavix, and then continue aspirin, Plavix and home statin for now. Patient will need swallow evaluation, at this point he is dysarthric and there is concern if he is able to safely swallow p.o. meds. Will obtain A1c and lipid panel. Patient did not take his medications today. Also when asked about if he is taking his statin every day he answers vaguely sometimes. Pt was also found hyperglycemic in the ED, will have glycemic pharmacy consulted. Further management will be discussed with [facility] neurology. Becca Padilla MD
--- NOTE | 2020-05-06 15:41 | XRay Report ---
XR KUB/Abdomen 1 view CLINICAL HISTORY: lower abdominal discomfort pain COMPARISON STUDY: No previous studies for comparison. FINDINGS: The soft tissues, psoas shadows, renal outlines and intestinal gas pattern appear normal. T here is no evidence for bowel obstruction. No abnormal abdominal calcifications are seen. IMPRESSION: Normal study. ACT 112: Negative or not required by law. The above report was generated using voice recognition software. It may contain grammatical, syntax or spelling errors. Electronically signed by: Tam Sorenson M.D. 05/06/2020 3:39 PM
[2020-05-06] MEDS ORDERED: CARBOHYDRATES FOR HYPOGLYCEMIA PO PRN (15:50)
[2020-05-06] MEDS ORDERED: PHARMACIST DISCHARGE MED REC CONSULT PRN (15:50)
[2020-05-06] MEDS ORDERED: GLUCOSE 10 TABS/TUBE PO PRN (15:50)
[2020-05-06] MEDS ORDERED: GLUCAGON FOR INJ 1 MG VIAL SQ PRN (15:50)
[2020-05-06] MEDS ORDERED: ACETAMINOPHEN 325 MG TAB PO PRN (15:50)
[2020-05-06] MEDS ORDERED: LABETALOL HCL IV 5 MG/ML 20ML IV PRN (15:50)
[2020-05-06] MEDS ORDERED: GLUCOSE 40% GEL 15 GM TUBE PO PRN (15:50)
[2020-05-06] MEDS ORDERED: DEXTROSE 50% 50 ML SYRINGE IV PRN (15:50)
[2020-05-06] MEDS ORDERED: ASPIRIN 300 MG SUPP PR ONE (16:00)
[2020-05-06] MEDS ORDERED: PHARMACY GLYCEMIC MGMT CONSULT PRN (16:03)
[2020-05-06] MEDS: INSULIN ASPART 100 UNITS/ML 3 ML PEN SC SCH ×2 (17:05→21:36)
[2020-05-06] MEDS: SODIUM CHLORIDE 0.9% 1000ML 1,000 ML IV SCH (17:06)
[2020-05-06] MEDS ORDERED: CLOPIDOGREL BISULFATE 300 MG TAB PO STA (17:20)
[2020-05-06] MEDS ORDERED: INSULIN DETEMIR FLEXPEN/FLEX TOUCH 100 UNITS/ML 3ML SC ONE (17:30)
[2020-05-06] MEDS: ASPIRIN 81 MG ECTAB PO SCH (18:11)
[2020-05-06] MEDS: ATORVASTATIN 40 MG TAB PO SCH (18:11)
[2020-05-06 18:41] LABS: Appearance Urine Clear (Clear); Bacteria Urine Automated Negative (Negative); Bilirubin Urine Negative (Negative); Blood Urine 1+ (Negative); Cast Urine Automated 0 /lpf (0-5); Color Urine Yellow; Epithelial Cell Urine Auto 20-30 /lpf (0-5); Glucose Urine UA 3+ (Negative); Ketones Urine Negative (Negative); Leukocyte Esterase Urine Negative (Negative); Nitrite Urine Negative (Negative); Protein Urine 1+ (Negative); RBC Urine Automated 0-4 /hpf (0-4); Specific Gravity Urine > 1.045 (1.000-1.030); Urobilinogen Urine Negative (Negative)
[2020-05-06] MEDS ORDERED: INSULIN GLARGINE SOLOSTAR 100 UNITS/ML 3 ML PEN SC SCH (21:00)
[2020-05-06] MEDS: HEPARIN SOD 5,000 UNIT/0.5 ML VIAL SQ SCH (21:37)
[2020-05-07] MEDS: INSULIN ASPART 100 UNITS/ML 3 ML PEN SC SCH ×6 (01:09→21:08)
[2020-05-07] MEDS: SODIUM CHLORIDE 0.9% 1000ML 1,000 ML IV SCH (02:27)
[2020-05-07] MEDS ORDERED: OLANZapine 10 MG/2.1 ML SDV IM STA (03:55)
[2020-05-07] MEDS ORDERED: METOPROLOL TARTRATE 1 MG/ML VIAL IV STA (05:55)
[2020-05-07] MEDS: HEPARIN SOD 5,000 UNIT/0.5 ML VIAL SQ SCH ×3 (06:20→21:09)
[2020-05-07 06:39] LABS: Basophils # (auto) 0.06 K/uL (0-0.2); Basophils % (auto) 0.5 %; Eosinophils % (auto) 3.5 %; Hematocrit (blood only) 35.1 % (42-52); Hemoglobin 11.9 g/dL (14.0-18.0); Immature Granulocytes # (auto) 0.13 K/uL (0.00-0.02); Immature Granulocytes % (auto) 1.1 %; Lymphocytes # (auto) 3.52 K/uL (1.2-3.4); Lymphocytes % (auto) 30.5 %; Mean Corpuscular Hemoglobin 31.4 pg (25-34); Mean Corpuscular Hgb Conc 33.9 g/dL (32-36); Mean Corpuscular Volume 92.6 fL (80-100); Mean Platelet Volume 10.3 fL (7.4-10.4); Monocytes # (auto) 0.88 K/uL (0.11-0.59); Monocytes % (auto) 7.6 %; Neutrophils # (auto) 6.56 K/uL (1.4-6.5); Neutrophils % (auto) 56.8 %; Platelet Count 281 K/uL (130-400); RDW Coefficient of Variation 12.7 % (11.5-14.5); RDW Standard Deviation 43.3 fL (36.4-46.3); Red Blood Count 3.79 M/uL (4.7-6.1); White Blood Count 11.55 K/uL (4.8-10.8)
--- NOTE | 2020-05-07 07:17 | Electrocardiogram Report ---
Test Reason : Blood Pressure : / mmHG Vent. Rate : 085 BPM Atrial Rate : 300 BPM P-R Int : 132 ms QRS Dur : 084 ms QT Int : 346 ms P-R-T Axes : -03 057 085 degrees QTc Int : 411 ms Sinus tachycardia Abnormal ECG When compared with ECG of 19-JUN-2018 15:59, ST now depressed in Anterior leads T wave inversion now evident in Anterolateral leads Confirmed by Carlos Stern ([id number]) on 05/07/2020 7:17:15 AM Referred By: Confirmed By:Carlos Stern
--- NOTE | 2020-05-07 07:19 | Electrocardiogram Report ---
Test Reason : Blood Pressure : / mmHG Vent. Rate : 081 BPM Atrial Rate : 081 BPM P-R Int : 128 ms QRS Dur : 086 ms QT Int : 366 ms P-R-T Axes : 010 047 048 degrees QTc Int : 425 ms Normal sinus rhythm with sinus arrhythmia Normal ECG When compared with ECG of 06-MAY-2020 12:45, (unconfirmed) ST no longer depressed in Anterior leads T wave inversion no longer evident in Anterolateral leads Confirmed by Carlos Stern ([id number]) on 05/07/2020 7:18:40 AM Referred By: REFERRED SELF Confirmed By:Carlos Stern
[2020-05-07 07:23] LABS: BUN Creatinine Ratio 13.1 (10-20); Calcium 9.1 mg/dl (8.5-10.1); Creatinine Clr Calc Pharmacy 31.2 ml/min; Est GFR (African American) 48.8; Est GFR (Non-African American) 42.1
[2020-05-07] MEDS ORDERED: INSULIN DETEMIR FLEXPEN/FLEX TOUCH 100 UNITS/ML 3ML SC ONE (08:00)
[2020-05-07 08:08] LABS: Estimated Average Glucose 280 mg/dl; Hemoglobin A1C 11.4 % (4.5-5.6)
[2020-05-07] MEDS: ATORVASTATIN 40 MG TAB PO SCH (09:14)
[2020-05-07] MEDS: CLOPIDOGREL BISULFATE 75 MG TAB PO SCH (09:14)
[2020-05-07] MEDS: ASPIRIN 81 MG ECTAB PO SCH (09:14)
[2020-05-07] MEDS ORDERED: ALPRAZolam 0.5 MG TABLET PO STA (10:11)
[2020-05-07] MEDS ORDERED: ALPRAZolam 0.5 MG TABLET ONE (10:13)
--- NOTE | 2020-05-07 11:12 | Consultation Report ---
DATE OF CONSULTATION: 05/06/2020 NEUROLOGY CONSULTATION CHIEF COMPLAINT: Right upper extremity weakness and dysarthria. HISTORY OF PRESENT ILLNESS: A 75-year-old male with multiple medical comorbidities including history of prior CVA, type 2 diabetes, hypertension, hyperlipidemia, coronary artery disease status post cardiac stent, peripheral vascular disease status post bilateral [id number] amputations and a history of chronic kidney disease stage III, who presented to the Emergency Department yesterday for right upper extremity weakness and dysarthria. Reportedly, per family and medical chart, the patient woke up yesterday and was going to a doctor's appointment around 7:00 a.m. At that time, it was noticed that he was not acting right and he was not talking much. Around 9:00 a.m., his speech was noted to be garbled and then he can no longer talk. EMS was called and the patient was transported to the Emergency Department. On arrival to the Emergency Department, his speech was significantly impaired and noted to have an expressive aphasia, as well as dysarthria, right facial droop, right arm weakness. Stroke, a stroke alert was called and CTA head imaging showed high grade stenosis of the left posterior cerebral artery and left intracranial vertebral artery. A telestroke consultation was performed through [facility] and the patient was deemed not a TPA candidate. He was able to respond minimally to some questions by shaking his head yes or no. He did not report a headache, dizziness or vision changes. He did have decreased sensation to the right side of his face. No nausea or vomiting, diarrhea, fever or chills, dysuria or hematuria. Of note, the patient does have prosthetic legs; however, he has not been using these. ALLERGIES: No known allergies. HOME MEDICATIONS: Vitamin C 500 mg 3 times daily, aspirin 81 mg daily, Lipitor 40 mg daily, Carvedilol 12.5 mg twice daily, vitamin D3, gabapentin 300 mg 4 times daily. He is on insulin (NovoLog) 10 units twice daily. He is also on long acting insulin 25 mg nightly, melatonin, sertraline and he is also on Flomax. PAST MEDICAL HISTORY: Anemia, arthritis, coronary artery disease status post cardiac stent, chronic kidney disease stage III, history of prior CVA, depression, insulin-dependent diabetes, gastroesophageal reflux disease, hyperlipidemia, hypertension, diabetic neuropathy, history of chronic wound status post amputation, and peripheral vascular disease. PAST SURGICAL HISTORY: He had an amputation of the left foot, history of heart artery stent placement, history of hernia repair, history of ankle surgery, below the knee amputations and a history of a tonsillectomy. FAMILY HISTORY: Dementia and diabetes. SOCIAL HISTORY: He is a former smoker. He denies alcohol use. In the 1970, he was a former polysubstance abuser. He is and lives with his spouse. REVIEW OF SYSTEMS: A 15-point review of systems was conducted and negative except as noted above in the HPI. PHYSICAL EXAMINATION: VITAL SIGNS: Blood pressure 183/98, pulse is 83, respiratory rate is 17, temperature is 37.1 degrees Celsius, oxygen saturation is 98% on room air. EXAM: Constitutional: appears chronically ill, older than stated age, no distress, obese Face: normocephalic and atraumatic Eyes: normal lids, normal conjunctiva Neck: supple Respiratory: normal effort Cardiovascular: normal pulses Abdomen: distended Skin: dry skin on both arms, BKA bilateral Psychiatric: normal mood NEUROLOGIC EXAMINATION: Appearance: no acute distress Orientation: awake and alert Attention: normal Knowledge:TOLU due to dysarthria Language: following simple commands Speech: severe dysarthria Cranial Nerves: CN 2 - no visual defect on confrontation and pupils round, equal, reactive to light CN 3, 4, 6 - right eye ptosis, eyes midline, EOMI CN 5 - facial sensation intact CN 7 - right facial droop CN 8 - intact hearing CN 9, 10 - palate symmetric CN 11 - good shoulder shrug CN 12 - tongue midline Gait: unable to ambulate Coordination: ataxia with finger to nose R>L Sensory:intact to touch Muscle Tone: normal Muscle exam: Right shoulder flexion weakness 4+/5 compared to right Reflexes: Hypoactive DIAGNOSTIC TESTING AND LABORATORY VALUES: WBC 11.55, hemoglobin 11.9, platelet count 281. INR is 0.9. Sodium is 141, potassium is 4.8, chloride is 110, BUN is 21, creatinine is 1.60, GFR is 48, glucose 195. Hemoglobin A1c 11.4. Calcium is 9.1. Triglycerides 539, cholesterol 257. Head CT noncontrast: No acute intracranial hemorrhage or midline shift. Ill-defined low attenuation of the right temporal lobe is likely artifactual, a subtle acute infarct is considered less likely, age related involutional changes with chronic microvascular ischemic disease and multiple remote infarcts as above. Head and neck CTA: No intraluminal thrombus or abrupt vessel cut off identified, severe multifocal stenosis within the intracranial vessels. Specifically, severe stenosis of the proximal intracranial portion of the left vertebral artery and the left posterior cerebral artery. No intracranial aneurysm. Chest x-ray: No acute cardiomegaly. No change in appearance of the chest from prior chest x-ray in 06/2018. KUB, normal study. ASSESSMENT AND PLAN: A 75-year-old male with multiple medical comorbidities including poorly controlled insulin-dependent diabetes with a hemoglobin A1c greater than 11; chronic kidney disease; hypertension and previous cerebrovascular accident as well as coronary artery disease with a stent, on aspirin; admitted with presumed small vessel ischemic stroke (possible right lateral medullary infarct). This would be supported by his right eye ptosis, right sided ataxia, and dysphagia. The patient is high risk for cerebrovascular accident and he has significant multifocal intracranial stenosis. Recommend dual antiplatelet, aspirin 81 mg daily and Plavix 75 mg daily for 21 days and then Plavix 75 mg daily indefinitely. Recommend increasing Lipitor to 80 mg daily. The patient would benefit from a formal endocrinology consult for hemoglobin A1c less than 7. Blood pressure goal, systolic blood pressure less than 140, diastolic blood pressure less than 90. Continue PT, OT and speech and swallow. Patient was unable to complete MRI brain this morning due to claustrophobia. Valium 5 mg IV once prior to MRI may be helpful. MTDD
[2020-05-07] MEDS ORDERED: LORazepam 0.5 MG/1 ML VIAL IV SCH (12:15)
--- NOTE | 2020-05-07 13:44 | Electrocardiogram Report ---
Test Reason : Blood Pressure : / mmHG Vent. Rate : 086 BPM Atrial Rate : 094 BPM P-R Int : 000 ms QRS Dur : 088 ms QT Int : 382 ms P-R-T Axes : 000 039 065 degrees QTc Int : 457 ms Atrial fibrillation with a competing junctional pacemaker Abnormal ECG When compared with ECG of 06-MAY-2020 14:59, Atrial fibrillation has replaced Sinus rhythm Confirmed by Eric Garcia ([id number]) on 05/07/2020 1:44:01 PM Referred By: REFERRED SELF Confirmed By:Eric Garcia
--- NOTE | 2020-05-07 17:19 | Hospitalist Progress Note ---
Date of Service May 07, 2020 Assessment & Plan (1) Stroke: TTE doesn't reveal clear etiology for embolic stroke and is WNL. MRI was unable to be performed 2/2 severe claustrophobia. Cont DAPT therapy once tolerating po. Three weeks of DAPT per Neuro then Plavix indefinitely. PT/OT to assess patient in am. Reassess swallowing abilities once Ativan effects wear off (this was given after initial speech path assessment). Permissive HTN for another 24 hours. Hold treatment unless >220/110. (2) HTN (hypertension): continue to allow permissive Hypertension to 220/110 for one more day in setting of acute stroke. (3) Abdominal discomfort: Pt had pointed to lower abdomen as area of discomfort. Denies N/V/D/C, dysuria -KUB unremarkable -Obtain UA -Closely monitor and if worsening discomfort consider further imaging (4) Diabetes mellitus, type II: A1c is 11.4 reflecting very poor control. Cont basal/bolus insulin while hospitalized. Consider regimen adjustment and question his about his compliance with medications at home. (5) CAD (coronary artery disease): records reflect prior CAD with stent placement. Continue aspirin, atorvastatin when able to take p.o. Hold coreg for now in setting of permissive HTN. (6) CKD (chronic kidney disease), stage III: Ar his baseline per records review. (7) PVD (peripheral vascular disease): S/p bilateral BKA. Cont medical management as above once tolerating PO again. (8) Anemia: chronic with multifactorial etiology. No indication for transfusion at this time. Cont to monitor CBC periodically. (9) DVT prophylaxis: Heparin Full Code Dispo-cont telemetry monitoring. Pending clinical improvement and PT/OT and Speech reassessments. I did speak wtih his by phone who verbalized understanding of the assessment and plan. All questions were answered and she will bring his leg prosthetics in the morning. Allison Staley DO [facility] Hospitalist Admission and Anticipated Discharge Date Admission Date: May 06, 2020 Subjective patient is somnolent and has aphasia able to follow simple commands such as squeezing my hand and nodding yes/no to some extent. He had Ativan after his speech path assessment and appears to be more somnolent and slightly worse This is thought to be secondary to the medication given to help with claustrophobia of the MRI, which was not successful and won't be reattempted. ROS is, therefore, unobtainable. I spoke with his by phone who states his mental baseline is oriented x 3 and he is able to walk with prosthetics typically, but lately has been wheelchair bound secondary to some skin changes on his stumps that were being investigated. He also has a prior left hand weakness since his prior stroke. Review of Systems Review of Systems: All systems reviewed & are unremarkable except as noted in Subjective Physical Exam Physical Exam: CONSTITUTIONAL: WNWD, vitals as above, aphasic, weak, somnolent EYES: pupils are round and equal bilaterally, normal conjunctivae, no scleral icterus ENT: external ear and nose normal, mucous membranes are dry, tongue is deviated to the left. RESPIRATORY: clear to auscultation bilaterally, no crackles, rales or wheezes, normal respiratory effort CARDIOVASCULAR: regular rate and rhythm, S1 and 2 heard without murmurs, gallops or rubs, no JVD, no peripheral edema GASTROINTESTINAL: soft, nontender, nondistended, no guarding MUSCULOSKELETAL: unable to follow many commands to test strength, is able to squeeze my hand well with the right hand but difficulty moving the left hand and cannot perform hand squeeze on command. cannot move independently in bed, bilateral amputee below the knee, SKIN: warm and dry NEUROLOGIC: patellar DTRs 2+ bilat. PERRL, no facial palsy, +aphasia, tongue deviation to the left, appears to be having toruble managing some secretions. Otherwise patient is unable to comply with exam. PSYCHIATRIC: somnolent but able to be aroused to voice and gentle physical stimulus (touching arm) Results & Data Results & Data ([facility]) Vital Signs (Past 12 Hours) Vital Signs Temp Pulse Pulse Resp BP BP Pulse Ox 05/07/20 15:39 36.1 C L 85 20 178/82 H 98 05/07/20 15:28 85 05/07/20 11:56 37.0 C 89 19 178/84 H 96 05/07/20 10:42 90 05/07/20 07:36 37.1 C 83 17 183/98 H 98 05/07/20 06:27 81 211/119 H 05/07/20 05:42 211/119 H Laboratory Results Short CBC 05/07/20 Range/Units 06:26 WBC 11.55 H (4.8-10.8) K/uL Hgb 11.9 L (14.0-18.0) g/dL Hct 35.1 L (42-52) % Plt Count 281 (130-400) K/uL BMP 05/07/20 06:26 Sodium 141 Potassium Chloride 110 H Carbon Dioxide 23 BUN 21 H Creatinine 1.60 H Glucose 172 H Calcium 9.1 Urine 05/06/20 Range/Units 18:25 Urine Color Yellow Urine Appearance Clear (Clear) Urine pH 5.0 (4.5-7.5) Ur Specific Coy > 1.045 H (1.000-1.030) Urine Protein 1+ H (Negative) Urine Glucose (UA) 3+ H (Negative) Medications Administered Current Inpatient Medications Acetaminophen (Tylenol) 650 mg PO Q4H PRN PRN Reason: Pain or Fever Stop: 06/05/20 15:49 Acetaminophen (Ofirmev) 1,000 mg IV Q8H PRN PRN Reason: Pain or Fever Stop: 05/09/20 15:49 Aspirin (Ecotrin Ectab) 81 mg PO [facility] Stop: 06/05/20 17:29 Last Admin: 05/07/20 09:14 Dose: 81 mg Documented by: Atorvastatin Calcium (Lipitor) 80 mg PO [facility] Stop: 06/07/20 08:59 Clopidog[facility] ([facility]ix) [facility] Stop: 06/06/20 08:59 Last Admin: 05/07/20 09:14 Dose: 75 mg Documented by: Dextrose (Dextrose 50%) 25 - 50 ml IV UD PRN; Protocol PRN Reason: Hypoglycemia Protocol Stop: 06/05/20 15:49 Glucagon (Glucagen) 1 mg SQ UD PRN; Protocol PRN Reason: Hypoglycemia Protocol Stop: 06/05/20 15:49 Glucose (Dex4 Glucose) 4 - 8 tabs PO UD PRN; Protocol PRN Reason: Hypoglycemia Protocol Stop: 06/05/20 15:49 Glucose (Glucose 40%) 15 - 30 gm PO UD PRN; Protocol PRN Reason: Hypoglycemia Protocol Stop: 06/05/20 15:49 Heparin Sodium (Porcine) (Heparin Sodium (Porcine)) 5,000 units SQ Q8 [facility] Stop: 06/05/20 21:59 Last Admin: 05/07/20 13:40 Dose: Not Given Documented by: Insulin Aspart (Novolog Flexpen) 0 units SC ACHS MIK; Protocol Stop: 06/06/20 07:29 Last Admin: 05/07/20 16:35 Dose: 2 units Documented by: Insulin Detemir (Levemir Flextouch) 25 units SC 2100 MIK; Protocol Stop: 05/07/20 23:00 Insulin Detemir (Levemir Flextouch) 30 units SC QPM MIK; Protocol Stop: 06/07/20 20:59 Labetalol HCl (Normodyne) 10 mg IV Q6H PRN PRN Reason: Hypertension Stop: 06/05/20 15:49 Miscellaneous (Carbohydrates For Hypoglycemia) 15 - 30 gm PO UD PRN PRN Reason: Hypoglycemia Protocol Stop: 06/05/20 15:49 Miscellaneous Information (Pharmacist Discharge Med Rec Consult) 1 ea N/A UD PRN PRN Reason: Consult Stop: 06/05/20 15:49 Miscellaneous Information (Consult Glycemic Management Pharmacy) 1 ea N/A UD PRN; Protocol PRN Reason: Consult Stop: 06/05/20 16:02
[2020-05-07] MEDS ORDERED: INSULIN DETEMIR FLEXPEN/FLEX TOUCH 100 UNITS/ML 3ML SC SCH (21:00)
[2020-05-08] MEDS: ACETAMINOPHEN 1000 MG/100 ML IV IV PRN ×3 (00:28→23:48)
[2020-05-08] MEDS: HEPARIN SOD 5,000 UNIT/0.5 ML VIAL SQ SCH ×3 (05:35→21:29)
[2020-05-08 07:14] LABS: Hematocrit (blood only) 32.8 % (42-52); Hemoglobin 11.1 g/dL (14.0-18.0); Mean Corpuscular Hemoglobin 31.4 pg (25-34); Mean Corpuscular Hgb Conc 33.8 g/dL (32-36); Mean Corpuscular Volume 92.7 fL (80-100); Mean Platelet Volume 10.3 fL (7.4-10.4); Platelet Count 286 K/uL (130-400); RDW Coefficient of Variation 12.8 % (11.5-14.5); RDW Standard Deviation 43.5 fL (36.4-46.3); Red Blood Count 3.54 M/uL (4.7-6.1); White Blood Count 10.88 K/uL (4.8-10.8)
[2020-05-08 07:44] LABS: BUN Creatinine Ratio 10.1 (10-20); Calcium 8.6 mg/dl (8.5-10.1); Creatinine Clr Calc Pharmacy 30.6 ml/min; Est GFR (African American) 48.4; Est GFR (Non-African American) 41.8; Magnesium 1.7 mg/dl (1.8-2.4); Potassium 4.2 mmol/L (3.5-5.1)
[2020-05-08] MEDS: CLOPIDOGREL BISULFATE 75 MG TAB PO SCH (09:09)
[2020-05-08] MEDS: ASPIRIN 81 MG ECTAB PO SCH (09:09)
[2020-05-08] MEDS: ATORVASTATIN 40 MG TAB PO SCH (09:09)
[2020-05-08] MEDS: INSULIN ASPART 100 UNITS/ML 3 ML PEN SC SCH ×4 (09:09→21:29)
[2020-05-08] MEDS: MAGNESIUM SULFATE / D5W 1 GM/100 ML BAG IV SCH ×2 (10:40→12:19)
--- NOTE | 2020-05-08 13:26 | Pharmacy Report ---
Pharmacy Glycemic Short Note 2 - Date of Service May 08, 2020 - Glycemic Short BSG Results (Last 24 hours): 05/07/20 05/07/20 05/08/20 16:24 20:23 06:29 Glucose 121 H POC Glucose 189 H 186 H 05/08/20 07:21 Glucose POC Glucose 135 H OUTPATIENT ANTIDIABETIC REGIMEN: * Levemir 25 units SQ qHS * Novolog 10 units BID with meals * A1c = 11.4% (05/07/20) ASSESSMENT: * Tyshawn is a 75 yo T2DM male admitted with dysphagia and stroke like symptoms * Severe hyperglycemia at the time of admission. Glycemic control has significantly improved since then. * He received a total of 48 units of insulin yesterday (33 units basal and 15 units for bolus) * Fasting BSG of 135 mg/dL is near goal. Continue with increased dose of Lantus. * The majority of post prandial BSGs are elevated despite tightening Novolog coverage yesterday. Will further tighten today. PLAN FOR INPATIENT GLYCEMIC CONTROL: * Basal insulin * Lantus 30 units SQ qHS * Bolus insulin - tighten * NovoLog per scale ACHS or Q6hrs while NPO * Goal Range: Low 120 mg/dL - High 150 mg/dL * Correction Factor: 15 mg/dL/unit * Nutritional / Prandial insulin per carb ratio of 1 unit per 6 grams CHO consumed PLAN FOR DISCHARGE: * tbd * A1c = 11.4% * This may be an overestimate of the extent of hyperglycemia in the setting of advanced kidney disease and iron deficiency anemia
--- NOTE | 2020-05-08 14:00 | Hospitalist Progress Note ---
Date of Service May 08, 2020 Assessment & Plan (1) Stroke: Function has improved today. Still requires assist with meals, and has expressive aphasia. He also has some cranial nerve deficit when looking to the right side. Pt had a prior storke with a baseline deficit of L hand weakness. He is left handed and was left unable to write after the last stroke. Baseline mental status was normal. TTE doesn't reveal clear etiology for embolic stroke and is WNL. MRI was unable to be performed 2/2 severe claustrophobia. Likely acute stroke as evidenced on CT imaging and clinical deficits. Cont DAPT x 3 weeks then Plavix indefinitely. PT/OT to assess patient in am. He is more awake today and following commands but has a clear expressive aphasia and cranial nerve deficits. Repeat head CT in am to track stroke evolution as we were unable to obtain MRI. Case discussed with Neurology today. (2) HTN (hypertension): start back on flomax, coreg per home regimen. There is a question of if he is taking lisinopril, however, patient receives [facility] mail medications which are administered by the [facility] home health nurses. The doesn't know what he is taking. Will give a small amount of hydralazine now, also. (3) Abdominal discomfort: Pt had pointed to lower abdomen as area of discomfort. Denies N/V/D/C, dysuria -KUB unremarkable --no urine infection -Closely monitor and if worsening discomfort consider further imaging, but would request records from his [facility] provider along with any imaging studies in the past 5 years. (4) Diabetes mellitus, type II: A1c is 11.4 reflecting very poor control. Cont basal/bolus insulin while hospitalized. Consider regimen adjustment and question his about his compliance with medications at home. (5) CAD (coronary artery disease): records reflect prior CAD with stent placement. Continue aspirin, atorvastatin when able to take p.o. Restart Coreg per home regimen. (6) CKD (chronic kidney disease), stage III: At his baseline per records review. (7) PVD (peripheral vascular disease): S/p bilateral BKA. Cont medical management as above. (8) Anemia: chronic with multifactorial etiology. No indication for transfusion at this time. Cont to monitor CBC periodically. (9) DVT prophylaxis: Heparin Full Code Dispo-cont telemetry monitoring. Likely transition to SNF upon discharge with his multiple needs. Allison Nance, DO [facility] Admission and Anticipated Discharge Date Admission Date: May 06, 2020 Physical Exam Physical Exam: CONSTITUTIONAL: WNWD, vitals as above, aphasic, weak, somnolent EYES: pupils are round and equal bilaterally, normal conjunctivae, no scleral icterus ENT: external ear and nose normal, mucous membranes are dry, tongue is deviated to the left. RESPIRATORY: clear to auscultation bilaterally, no crackles, rales or wheezes, normal respiratory effort CARDIOVASCULAR: regular rate and rhythm, S1 and 2 heard without murmurs, gallops or rubs, no JVD, no peripheral edema GASTROINTESTINAL: soft, nontender, nondistended, no guarding MUSCULOSKELETAL: unable to follow many commands to test strength, is able to squeeze my hand well with the right hand but difficulty moving the left hand and cannot perform hand squeeze on command. cannot move independently in bed, bilateral amputee below the knee, SKIN: warm and dry NEUROLOGIC: patellar DTRs 2+ bilat. PERRL, no facial palsy, +aphasia, tongue deviation to the left, appears to be having toruble managing some secretions. Otherwise patient is unable to comply with exam. PSYCHIATRIC: somnolent but able to be aroused to voice and gentle physical stimulus (touching arm) Results & Data Results & Data ([facility]) Vital Signs (Past 12 Hours) Vital Signs Temp Pulse Resp BP Pulse Ox 05/08/20 11:38 36.6 C 86 17 178/99 H 94 05/08/20 07:45 36.4 C L 79 19 165/90 H 99 05/08/20 02:47 36.7 C 74 16 169/89 H 95 Laboratory Results Short CBC 05/08/20 Range/Units 06:29 WBC 10.88 H (4.8-10.8) K/uL Hgb 11.1 L (14.0-18.0) g/dL Hct 32.8 L (42-52) % Plt Count 286 (130-400) K/uL BMP 05/08/20 06:29 Sodium 145 Potassium 4.2 Chloride 112 H Carbon Dioxide 26 BUN 16 Creatinine 1.61 H Glucose 121 H Calcium 8.6 Medications Administered Current Inpatient Medications Acetaminophen (Tylenol) 650 mg PO Q4H PRN PRN Reason: Pain or Fever Stop: 06/05/20 15:49 Acetaminophen (Ofirmev) 1,000 mg IV Q8H PRN PRN Reason: Pain or Fever Stop: 05/09/20 15:49 Last Admin: 05/08/20 13:55 Dose: 1,000 mg Documented by: Aspirin (Ecotrin Ectab) 81 mg PO QAM [facility] Stop: 06/05/20 17:29 Last Admin: 05/08/20 09:09 Dose: 81 mg Documented by: Atorvastatin Calcium (Lipitor) [facility] Stop: 06/07/20 08:59 Last Admin: 05/08/20 09:09 Dose: 80 mg Documented by: Clopidogrel Bisulfate (Plavix) 75 mg [facility] Stop: 06/06/20 08:59 Last Admin: 05/08/20 09:09 Dose: 75 mg Documented by: Dextrose (Dextrose 50%) 25 - 50 ml IV UD PRN; Protocol PRN Reason: Hypoglycemia Protocol Stop: 06/05/20 15:49 Glucagon (Glucagen) 1 mg SQ UD PRN; Protocol PRN Reason: Hypoglycemia Protocol Stop: 06/05/20 15:49 Glucose (Dex4 Glucose) 4 - 8 tabs PO UD PRN; Protocol PRN Reason: Hypoglycemia Protocol Stop: 06/05/20 15:49 Glucose (Glucose 40%) 15 - 30 gm PO UD PRN; Protocol PRN Reason: Hypoglycemia Protocol Stop: 06/05/20 15:49 Heparin Sodium (Porcine) (Heparin Sodium (Porcine)) 5,000 units SQ Q8 [facility] Stop: 06/05/20 21:59 Last Admin: 05/08/20 12:45 Dose: 5,000 units Documented by: Magnesium Sulfate/Dextrose (Magnesium Sulfate / D5w) 1 gm in 100 mls @ 50 mls/hr IV Q2H [facility] Stop: 05/08/20 14:14 Last Admin: 05/08/20 12:19 Dose: 50 mls/hr Documented by: Insulin Aspart (Novolog Flexpen) 0 units SC ACHS [facility]; Protocol Stop: 06/06/20 07:29 Last Admin: 05/08/20 12:10 Dose: 3 units Documented by: Insulin Detemir (Levemir Flextouch) 30 units SC QPM [facility]; Protocol Stop: 06/07/20 20:59 Miscellaneous (Carbohydrates For Hypoglycemia) 15 - 30 gm PO UD PRN PRN Reason: Hypoglycemia Protocol Stop: 06/05/20 15:49 Miscellaneous Information (Pharmacist Discharge Med Rec Consult) 1 ea N/A UD PRN PRN Reason: Consult Stop: 06/05/20 15:49 Miscellaneous Information (Consult Glycemic Management Pharmacy) 1 ea N/A UD PRN; Protocol PRN Reason: Consult Stop: 06/05/20 16:02
[2020-05-08] MEDS ORDERED: HydrALAZINE HCL 20 MG/ML VIAL IV ONE (14:19)
[2020-05-08] MEDS: GABAPENTIN 300 MG CAP PO SCH ×3 (16:05→22:33)
[2020-05-08] MEDS ORDERED: carvediloL 12.5 MG TAB PO SCH (21:00)
[2020-05-08] MEDS: INSULIN DETEMIR FLEXPEN/FLEX TOUCH 100 UNITS/ML 3ML SC SCH (21:28)
[2020-05-08] MEDS: FERROUS SULFATE ELIX 220MG/5ML PO SCH (22:32)
[2020-05-08] MEDS: TAMSULOSIN HCL 0.4 MG CAP PO SCH (22:33)
[2020-05-09] MEDS ORDERED: METOPROLOL TARTRATE 1 MG/ML VIAL IV STA (04:47)
--- NOTE | 2020-05-09 04:49 | Communication Note ---
Date of Service: May 09, 2020 Made aware by RN of SBP 190s. Patient refused some p.m. night meds including Coreg. Patient still refusing Coreg as per RN. AP Hypertensive urgency Medication noncompliance Lopressor 5 mg IV every 6 hours while patient refusing to take home Coreg Will relay to AM provider.
[2020-05-09] MEDS: carvediloL 12.5 MG TAB PO SCH (05:24)
[2020-05-09] MEDS: HEPARIN SOD 5,000 UNIT/0.5 ML VIAL SQ SCH ×3 (05:50→22:06)
[2020-05-09 06:37] LABS: Hematocrit (blood only) 34.8 % (42-52); Hemoglobin 11.3 g/dL (14.0-18.0); Mean Corpuscular Hemoglobin 30.6 pg (25-34); Mean Corpuscular Hgb Conc 32.5 g/dL (32-36); Mean Corpuscular Volume 94.3 fL (80-100); Mean Platelet Volume 10.2 fL (7.4-10.4); Platelet Count 299 K/uL (130-400); RDW Standard Deviation 44.8 fL (36.4-46.3); Red Blood Count 3.69 M/uL (4.7-6.1); White Blood Count 9.19 K/uL (4.8-10.8)
[2020-05-09 07:17] LABS: BUN Creatinine Ratio 7.9 (10-20); Calcium 9.1 mg/dl (8.5-10.1); Creatinine Clr Calc Pharmacy 31.6 ml/min; Est GFR (African American) 49.9; Est GFR (Non-African American) 43.1; Potassium 3.9 mmol/L (3.5-5.1)
[2020-05-09] MEDS ORDERED: INSULIN DETEMIR FLEXPEN/FLEX TOUCH 100 UNITS/ML 3ML SC SCH (09:00)
--- NOTE | 2020-05-09 09:03 | CT Scan Report ---
CT head/brain wo con CT DOSE: 729.78 mGycm HISTORY: Mental status change repeat eval for stroke TECHNIQUE: Multiaxial CT images of the head were performed without the use of intravenous contrast. A dose lowering technique was utilized adhering to the principles of ALARA. Comparison: 05/06/2020 Findings: The paranasal sinuses and mastoid air cells are clear. The calvarium and skull base are int act. The ventricles and sulci are within normal limits. There is no mass, hematoma, midline shift, or acute infarct. Several old infarcts including an old right frontal infarct. Right temporal lobe now show is unremarkable density characteristics. No acute intracranial hemorrhage. Impression: No acute intracranial abnormality. Chronic and age-related change. ACT 112: Negative or not required by law. The above report was generated using voice recognition software. It may contain grammatical, syntax or spelling errors. Electronically signed by: Tam Sorenson M.D. 05/09/2020 9:01 AM
[2020-05-09] MEDS: ASPIRIN 81 MG ECTAB PO SCH (09:11)
[2020-05-09] MEDS: TAMSULOSIN HCL 0.4 MG CAP PO SCH ×2 (09:12→22:06)
[2020-05-09] MEDS: FERROUS SULFATE ELIX 220MG/5ML PO SCH ×3 (09:13→22:06)
[2020-05-09] MEDS: GABAPENTIN 300 MG CAP PO SCH ×4 (09:15→22:06)
[2020-05-09] MEDS: CLOPIDOGREL BISULFATE 75 MG TAB PO SCH (09:16)
[2020-05-09] MEDS: ATORVASTATIN 40 MG TAB PO SCH (09:16)
--- NOTE | 2020-05-09 09:16 | History and Physical Report ---
DATE OF ADMISSION: 05/06/2020 NEUROLOGY FOLLOW UP NOTE SUBJECTIVE: The patient was seen and examined. He is sitting up in bed looking down the gant waving hoping to go home. The patient refused hypertensive oral medications last night and also was unable to complete MRI brain due to claustrophobia. OBJECTIVE: VITAL SIGNS: 150/79, pulse 83, respiratory rate 19, temperature 36.5 degrees Celsius and oxygen saturation 97% on room air. PHYSICAL EXAMINATION: GENERAL: The patient appears chronically ill, older than stated age, no distress. He is obese. LUNGS: Respiratory effort is normal. His pulses are normal. ABDOMEN: Distended. EXTREMITIES: He has bilateral below the knee amputations and noted some pain in the left stump. NEUROLOGIC: His mood is normal. He is awake and alert. His attention is decreased. His knowledge is unable to assess due to severe dysarthria. He is following simple commands. He is unable to repeat. He does blink to threat on confrontation. His pupils are round and equal and reactive to light. He has a right eye ptosis and right facial droop. His eyes are midline. His extraocular muscles are intact. His facial sensation is intact, although noting some decreased sensation on the right side of his face. His hearing is intact. His palate is symmetric. He is holding his head up. Unable to shrug his shoulders. His tongue is midline. He is unable to ambulate. He has ataxia with [id number] testing, right greater than the left. Sensory exam shows that he has reduced sensation on the left side compared to the right. He has some right sided weakness greater than the left 4+/5 with shoulder flexion. His reflexes are attenuated. DIAGNOSTIC TESTING AND LABORATORY DATA: WBC 9.19, hemoglobin 11.3, platelet count 299. Sodium 141, potassium 3.9, chloride 109, creatinine 1.57, BUN is 12. Estimated GFR is 49.9. Glucose is 191, calcium 9.1. Repeat CT head noncontrast is pending. 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 The patient currently refusing or unable to complete MRI brain to evaluate for stroke further. Repeat CT head shows no hemorrhage or acute stroke although a medullary infarct or embolic infarct is easily missed on CT head.. Recommend to continue dual antiplatelet therapy, aspirin 81 mg daily and Plavix 75 mg daily for 21 days and then continue on Plavix 75 mg daily indefinitely. Recommend continuing Lipitor 80 mg daily. 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 Blood pressure goal is systolic blood pressure less than 140, diastolic blood pressure less than 90 mmHg. Continue physical therapy and occupational therapy as well as speech therapy. The patient will need Neurology followup as an outpatient in 8 weeks. Please contact me with any further questions or concerns. AMEYA
[2020-05-09] MEDS: INSULIN ASPART 100 UNITS/ML 3 ML PEN SC SCH ×4 (09:17→22:08)
[2020-05-09] MEDS ORDERED: METOPROLOL TARTRATE 1 MG/ML VIAL IV SCH (12:00)
--- NOTE | 2020-05-09 14:45 | Pharmacy Report ---
Pharmacy Glycemic Short Note 2 - Date of Service May 09, 2020 - Glycemic Short BSG Results (Last 24 hours): 05/08/20 05/08/20 05/08/20 11:30 16:31 20:12 Glucose POC Glucose 195 H 245 H 170 H 05/09/20 05/09/20 05/09/20 06:22 07:25 11:22 Glucose 177 H POC Glucose 191 H 224 H OUTPATIENT ANTIDIABETIC REGIMEN: * Levemir 25 units SQ qHS * Novolog 10 units BID with meals * A1c = 11.4% (05/07/20) ASSESSMENT: 05/09 * Patient received a total of 42 units yesterday (30 basal, 12 bolus) * Fasting BSG was somewhat elevated this morning at 177 and thus an additional 5 units of levemir was given this morning. Plan to continue with once daily levemir dosing * Patient refused AM novolog, which is likely contributing to elevated lunch BSG. He did agree to lunchtime coverage. Will need to consider this in dosing going forward if patient continues to refuse. Will continue with current novolog scale as I was unable to adequately assess efficacy of this regimen given patient refusal. * Patient is ordered a diet but appears to be eating very little 05/08 * Tyshawn is a 75 yo T2DM male admitted with dysphagia and stroke like symptoms * Severe hyperglycemia at the time of admission. Glycemic control has significantly improved since then. * He received a total of 48 units of insulin yesterday (33 units basal and 15 units for bolus) * Fasting BSG of 135 mg/dL is near goal. Continue with increased dose of Lantus. * The majority of post prandial BSGs are elevated despite tightening Novolog coverage yesterday. Will further tighten today. PLAN FOR INPATIENT GLYCEMIC CONTROL: * Basal insulin- increase * Levemir 5 units SQ this morning * Levemir 30 units SQ qHS * Consider increasing levemir to 35 units tomorrow evening (05/10) * Bolus insulin * NovoLog per scale ACHS or Q6hrs while NPO * Goal Range: Low 120 mg/dL - High 150 mg/dL * Correction Factor: 15 mg/dL/unit * Nutritional / Prandial insulin per carb ratio of 1 unit per 6 grams CHO consumed PLAN FOR DISCHARGE: * tbd * A1c = 11.4% * This may be an overestimate of the extent of hyperglycemia in the setting of advanced kidney disease and iron deficiency anemia
[2020-05-09] MEDS: INSULIN DETEMIR FLEXPEN/FLEX TOUCH 100 UNITS/ML 3ML SC SCH (22:07)
--- NOTE | 2020-05-09 22:47 | Hospitalist Progress Note ---
Date of Service May 09, 2020 Assessment & Plan (1) Stroke: Acute ischemic stroke with expressive aphasia. CT 05/06 demonstrated age-related small vessel ischemic changes, possible right temporal lesion felt most likely to be artifact, no hemorrhage. CTA head demonstrated extensive atherosclerotic disease in multiple vessels, no apparent intraluminal thrombi. CTA neck demonstrated bilateral carotid plaque with 50% stenosis right ICA and 60% stenosis left ICA; high-grade stenosis of left vertebral artery also noted. Echocardiogram did not show any apparent thrombi. EKG's initially showed NSR. ? AF on 05/07 as discussed below. Lipid management as discussed below. PT / OT / VISUAL EDUCATION DIRECTOR evaluations requested. Seen by Neurology. Ischemic brainstem stroke suspected. MRI discussed, but not done because of severe claustrophobia. Dual antiplatelet therapy with ASA + clopidogrel x 21 days recommended, followed by clopidogrel alone long-term. Ongoing management of hypertension, diabetes, lipids. (2) Dysphagia: Seen by VISUAL EDUCATION DIRECTOR. Aspiration precautions, including assistance with meals. (3) Abnormal ECG: EKG 05/07 interpreted as AF. Some baseline artifact. ? WAP. Review with Cardiology. (4) CAD (coronary artery disease): Denies anginal symptoms. Continue anti-platelet therapy, carvedilol, statin. (5) HTN (hypertension): BP's high at times. Permissive hypertension in setting of acute stroke. Continue carvedilol. Titrate antihypertensive meds to achieve gradual lowering of BP. (6) CKD (chronic kidney disease), stage III: History of CKD III; underlying DM and hypertension. Creatinine today = 1.57. Follow. (7) Diabetes mellitus, type II: DM type 2 with complications, uncontrolled. Pharmacy consulted for glycemic management. Sometimes refuses insulin dosing. Hgb A1c = 11.4. FBS today = 191. Continue Lantus + NovoLog. Titrate insulin therapy. Will need ongoing monitoring / support after discharge. (8) HLD (hyperlipidemia): LDL-c could not be calculated due to hypertriglyceridemia. Check direct LDL. Atorvastatin increased to 80 mg daily. Add fenofibrate. (9) Anemia: Chronic anemia, probably at least partly due to CKD. Hgb stable at 11.1 - 11.9. (10) DVT prophylaxis: Receiving SQ heparin. Transition to SQ enoxaparin to minimize frequency of injections. (11) Discharge planning issues: Anticipated need for inpt rehab or skilled care. Case Management following. Medical follow-up with [facility]. visiting at bedtime and given update. Admission and Anticipated Discharge Date Admission Date: May 06, 2020 Subjective Recheck for stroke and other concerns. Patient seen in their room around 0910. Ongoing problems with expressive aphasia, but seems to respond appropriately by nodding his head. Denies headache. No new neuro symptoms. Denies cough or SOB. Not too happy with pureed diet & thickened liquids. Review of Systems: Constitutional- no fever. Cardiac- no chest pain. Pulmonary- no cough or SOB. GI- no nausea, vomiting, diarrhea, melena, hematochezia. - no urinary symptoms. Otherwise, as noted above. Physical Exam Constitutional: no acute distress Respiratory: no respiratory distress Auscultation: lungs clear to ausc ultation bilaterally Cardiovascular: Rate/Rhythm: regular rate and regular rhythm Heart Sounds: no gallop Vessels: no JVD Gastrointestinal (Abdomen): normal bowel sounds, soft, nontender, no hepatosplenomegaly Musculoskeletal: Extremities: + amputation noted (bilat BKA's); no cyanosis Skin: no rashes, warm and dry Neurologic: alert PERRL, EOMI expressive aphasia ? right facial palsy upper extremity strength essentially 5/5 Psychiatric: Orientation: alert Results & Data Results & Data ([facility]) Vital Signs (Past 12 Hours) Vital Signs Temp Pulse Resp BP Pulse Ox 05/09/20 19:33 36.9 C 86 20 145/67 H 100 05/09/20 16:11 36.9 C 85 16 149/73 H 95 05/09/20 11:36 36.7 C 84 19 137/79 92 Laboratory Results Laboratory Results - last 24 hr 05/08/20 05/08/20 05/08/20 11:30 16:31 20:12 WBC RBC Hgb Hct MCV MCH MCHC RDW Std Deviation RDW Coeff of Star Plt Count MPV Sodium Potassium Chloride Carbon Dioxide Anion Gap BUN Creatinine Est Cr Clr Drug Dosing Est GFR ( Amer) Est GFR (Non-Af Amer) BUN/Creatinine Ratio Glucose POC Glucose 195 H 245 H 170 H Calcium 05/09/20 05/09/20 05/09/20 06:22 06:22 07:25 WBC 9.19 RBC 3.69 L Hgb 11.3 L Hct 34.8 L MCV 94.3 MCH 30.6 MCHC 32.5 RDW Std Deviation 44.8 RDW Coeff of Star 13.0 Plt Count 299 MPV 10.2 Sodium 141 Potassium 3.9 Chloride 109 H Carbon Dioxide 24 Anion Gap 8.0 BUN 12 Creatinine 1.57 H Est Cr Clr Drug Dosing 31.6 Est GFR ( Amer) 49.9 Est GFR (Non-Af Amer) 43.1 BUN/Creatinine Ratio 7.9 L Glucose 177 H POC Glucose 191 H Calcium 9.1 05/09/20 05/09/20 05/09/20 11:22 16:13 20:23 WBC RBC Hgb Hct MCV MCH MCHC RDW Std Deviation RDW Coeff of Star Plt Count MPV Sodium Potassium Chloride Carbon Dioxide Anion Gap BUN Creatinine Est Cr Clr Drug Dosing Est GFR ( Amer) Est GFR (Non-Af Amer) BUN/Creatinine Ratio Glucose POC Glucose 224 H 185 H 203 H Calcium
[2020-05-10] MEDS: INSULIN ASPART 100 UNITS/ML 3 ML PEN SC SCH ×4 (10:33→21:53)
[2020-05-10] MEDS: SERTRALINE HCL 100 MG TABLET PO SCH (10:50)
[2020-05-10] MEDS: GABAPENTIN 300 MG CAP PO SCH ×3 (10:50→21:51)
[2020-05-10] MEDS: FENOFIBRATE NANOCRYSTALLIZED 145 MG TABLET PO SCH (10:50)
[2020-05-10] MEDS: TAMSULOSIN HCL 0.4 MG CAP PO SCH ×2 (10:51→21:51)
[2020-05-10] MEDS: ASPIRIN 81 MG ECTAB PO SCH (10:51)
[2020-05-10] MEDS: ATORVASTATIN 40 MG TAB PO SCH (10:51)
[2020-05-10] MEDS: CLOPIDOGREL BISULFATE 75 MG TAB PO SCH (10:51)
[2020-05-10] MEDS: ENOXAPARIN INJ 40 MG/0.4 ML SYR SQ SCH (10:52)
[2020-05-10] MEDS: FERROUS SULFATE ELIX 220MG/5ML PO SCH ×3 (10:52→21:52)
--- NOTE | 2020-05-10 12:32 | Pharmacy Report ---
Pharmacy Glycemic Short Note 2 - Date of Service May 10, 2020 - Glycemic Short BSG Results (Last 24 hours): 05/09/20 05/09/20 05/10/20 16:13 20:23 07:37 POC Glucose 185 H 203 H 109 H 05/10/20 11:37 POC Glucose 183 H OUTPATIENT ANTIDIABETIC REGIMEN: * Levemir 25 units SQ qHS * Novolog 10 units BID with meals * A1c = 11.4% (05/07/20) ASSESSMENT: 05/10 * 49 units SQ insulin given over last 24 hrs while patient ordered diet however again eating poorly per documented PO intake * Fasting BSG 109 this AM with 35 units of basal insulin on board - will continue the same * Post prandial BSGs somewhat elevated yesterday - however in most cases patient had eaten very little - will lower goal range to allow for a few additional units of correction * Patient again refused nursing interventions this AM, insulin was not administered at breakfast time. 05/09 * Patient received a total of 42 units yesterday (30 basal, 12 bolus) * Fasting BSG was somewhat elevated this morning at 177 and thus an additional 5 units of levemir was given this morning. Plan to continue with once daily levemir dosing * Patient refused AM novolog, which is likely contributing to elevated lunch BSG. He did agree to lunchtime coverage. Will need to consider this in dosing going forward if patient continues to refuse. Will continue with current novolog scale as I was unable to adequately assess efficacy of this regimen given patient refusal. * Patient is ordered a diet but appears to be eating very little 05/08 * Tyshawn is a 75 yo T2DM male admitted with dysphagia and stroke like symptoms * Severe hyperglycemia at the time of admission. Glycemic control has significantly improved since then. * He received a total of 48 units of insulin yesterday (33 units basal and 15 units for bolus) * Fasting BSG of 135 mg/dL is near goal. Continue with increased dose of Lantus. * The majority of post prandial BSGs are elevated despite tightening Novolog coverage yesterday. Will further tighten today. PLAN FOR INPATIENT GLYCEMIC CONTROL: * Basal insulin- increase * Levemir 35 units SQ qHS * Bolus insulin - small increase * NovoLog per scale ACHS or Q6hrs while NPO * Goal Range: Low 110 mg/dL - High 140 mg/dL * Correction Factor: 15 mg/dL/unit * Nutritional / Prandial insulin per carb ratio of 1 unit per 6 grams CHO consumed PLAN FOR DISCHARGE: * A1c = 11.4% * Patient likely to be discharged to rehab facility or skilled care on discharge * Insulin therapy, basal/bolus would be most appropriate to control BSGs in this setting - he was using basal/bolus insulin prior to admission * Would base discharge insulin doses upon insulin needs over last 24 hrs prior to discharge
--- NOTE | 2020-05-10 16:25 | Cardiology Consultation ---
Date of Consultation May 10, 2020 Assessment & Plan (1) Stroke: A single EKG on 05/07/2020 suggested possible atrial fibrillation, however telemetry performed from around that time, and in the meantime, all suggest sinus rhythm, as did the echocardiogram performed an hour after the EKG. Reviewed EKG, the presence of small low amplitude P waves cannot be excluded. The patient certainly has vascular disease that would explain his recent strokes, and other cardioembolic source is also a possibility, picture of his presentation, I think it is most prudent to proceed with ongoing dual antiplatelet therapy with aspirin clopidogrel as initiated this hospital stay, as at present, I am not convinced of the diagnosis of atrial fibrillation based on the single EKG enough to commit him to anticoagulation. History of Present Illness Attending Physician: Edd Adkins MD History of Present Illness Tyshawn Goetz is a 75 year old male seen in cardiology consultation per the request of Dr Adkins for the evaluation of stroke and possible paroxysmal atrial fibrillation. He has a long standing h/o peripheral arterial disease and cerebrovascular disease who presented with findings of a posterior stroke with CTA revealing severe stenosis proximal intracranial portion of the left vertebral artery and the left posterior cerebral artery. He had been on aspirin therapy at the time of the event but likely non adherent to this therapy. At present he follow commands but does not convers. Allergies Allergy/AdvReac Type Severity Reaction Status Date / Time No Known Allergies Allergy Unknown NONE Verified 05/06/20 13:38 Home Medications Home Medications Medication Instructions Recorded Confirmed Type acetaminophen [Children's Tylenol] 0 mg PO QID PRN 05/06/20 05/06/20 History alum-mag hydroxide-simeth [Mintox 10 ml PO TID PRN 05/06/20 05/06/20 History Maximum Strength] ascorbic acid (vitamin C) 500 mg PO TID 05/06/20 05/06/20 History aspirin [Aspirin Childrens] 81 mg PO DAILY 05/06/20 05/06/20 History atorvastatin 40 mg PO HS 05/06/20 05/06/20 History bethanechol chloride 25 mg PO TID 05/06/20 05/06/20 History calcium carbonate [Tums Extra 300 mg PO UD 05/06/20 05/06/20 History Strength Smoothies] carvedilol 12.5 mg PO BID 05/06/20 05/06/20 History cholecalciferol (vitamin D3) 50 mcg PO DAILY 05/06/20 05/06/20 History [Vitamin D3] ferrous sulfate 220 mg PO TID 05/06/20 05/06/20 History gabapentin 300 mg PO QID 05/06/20 05/06/20 History insulin aspart U-100 [Novolog 10 unit SUBCUT BIDM 05/06/20 05/06/20 History Flexpen U-100 Insulin] insulin detemir U-100 25 unit SUBCUT HS 05/06/20 05/06/20 History melatonin 6 mg PO HS PRN 05/06/20 05/06/20 History vjnqlpws-rgh-rqwaddf gluconate 5 ml PO DAILY 05/06/20 05/06/20 History [Centrum] sertraline 100 mg PO DAILY 05/06/20 05/09/20 History tamsulosin [Flomax] 0.4 mg PO BID 05/06/20 05/06/20 History Patient History Medical History Anemia (Chronic) Arthritis (Chronic) CAD (coronary artery disease) (Chronic) s/p stent placement. 1 stent placed. patient thinks this was 3-4 years ago. CKD (chronic kidney disease), stage III (Chronic) CVA (cerebral vascular accident) (Chronic) Patient unsure of when this happened. Denied any current deficits related to the stroke. Depression (Chronic) Diabetes mellitus, type II (Chronic) GERD (gastroesophageal reflux disease) (Chronic) HLD (hyperlipidemia) (Chronic) HTN (hypertension) (Chronic) Neuropathy, diabetic (Chronic) Non-healing wound of amputation stump (Acute) s/p left 3rd toe ampuation on 06/24 PVD (peripheral vascular disease) (Chronic) Surgical History Amputated toe of left foot 06/2018. MAC. 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, former substance user) Preferred Language: Malagasy Communication Ability: Effective Visual Impairment: No Limitations Custodial Aide Required: No Beliefs That Will Affect Care: None marital status: Current Living Situation: Spouse Other Information That Helps Us Care for You: No Feels Safe at Home: Yes Safety Concerns: Feels Safe At This Time Review of Systems Review of Systems: Unobtainable due to cognitive status Physical Exam Physical Exam: Temp Pulse Resp BP Pulse Ox 37.0 C 83 22 126/59 L 92 05/10/20 15:03 05/10/20 15:03 05/10/20 15:03 05/10/20 15:03 05/10/20 15:03 Constitutional: no acute distress Respiratory: normal respiratory effort, lungs clear to auscultation Cardiovascular: RRR, no murmur, no edema Gastrointestinal (Abdomen): normal bowel sounds, soft, nontender, no hepatosplenomegaly Musculoskeletal: Bilateral BKAs noted. Neurologic: follows commands. Non conversant. Results & Data ([facility]) Vital Signs (Past 12 Hours) Vital Signs Temp Pulse Resp BP Pulse Ox 05/10/20 15:03 37.0 C 83 22 126/59 L 92 05/10/20 12:09 36.6 C 85 20 176/84 H 92 05/10/20 07:19 36.6 C 74 22 152/69 H 100 Diagnostic Findings Echocardiogram had been performed on 05/07/2020, images obtained 8:26 AM, reviewed independently by the undersigned. Mild concentric left ventricular hypertrophy is noted. Left ventricular wall motion was normal with normal LVEF of 60-65 percent. There was no evidence of an atrial septal defect however resolution did not allow assessment for a patent foramen ovale. Sinus rhythm was noted at the time of the echocardiogram with grade 1 diastolic dysfunction. EKG had been performed 05/07/2020 at 7:26 AM with concerns of possible atrial fibrillation, but on further review, sinus rhythm with small, low amplitude, P waves appear to be present, with PACs. -On telemetry in the meantime, normal sinus rhythm has been noted.
[2020-05-10] MEDS: INSULIN DETEMIR FLEXPEN/FLEX TOUCH 100 UNITS/ML 3ML SC SCH (21:53)
--- NOTE | 2020-05-10 22:08 | Hospitalist Progress Note ---
Date of Service May 10, 2020 Assessment & Plan (1) Stroke: Acute ischemic stroke with severe dysarthria.. CT 05/06 demonstrated age-related small vessel ischemic changes, possible right temporal lesion felt most likely to be artifact, no hemorrhage. CTA head demonstrated extensive atherosclerotic disease in multiple vessels, no apparent intraluminal thrombi. CTA neck demonstrated bilateral carotid plaque with 50% stenosis right ICA and 60% stenosis left ICA; high-grade stenosis of left vertebral artery also noted. Echocardiogram did not show any apparent thrombi. EKG's initially showed NSR. ? AF on 05/07 as discussed below. Lipid management as discussed below. PT / OT / ENDLESS BELT FINISHER evaluations requested. Seen by Neurology. Ischemic brainstem stroke suspected. MRI discussed, but not done because of severe claustrophobia. Dual antiplatelet therapy with ASA + clopidogrel x 21 days recommended, followed by clopidogrel alone long-term. Ongoing management of hypertension, diabetes, lipids. (2) Dysphagia: Seen by ENDLESS BELT FINISHER. Pureed diet + thickened liquids. Aspiration precautions, including assistance with meals. (3) Abnormal ECG: EKG 05/07 interpreted as AF. Some baseline artifact. ? WAP. Reviewed with Cardiology. 12-lead EKG - possible AF vs low amplitude P waves. No definite AF on telemetry. In NSR about 1 hour after 12-lead EKG when echo was done. Insufficient data to confirm AF. Patient would be very high risk for complications from anticoagulation. Anticoagulants (1) not clearly indicated and (2) relatively contraindicated. (4) CAD (coronary artery disease): Denies anginal symptoms. Continue anti-platelet therapy, carvedilol, statin. (5) HTN (hypertension): BP's high at times. Permissive hypertension in setting of acute stroke. Continue carvedilol. Titrate antihypertensive meds to achieve gradual lowering of BP. (6) CKD (chronic kidney disease), stage III: History of CKD III; underlying DM and hypertension. Creatinine yesterday = 1.57. Follow. (7) Diabetes mellitus, type II: DM type 2 with complications, uncontrolled. Pharmacy consulted for glycemic management. Sometimes refuses insulin dosing. Hgb A1c = 11.4. FBS today = 109. Continue Lantus + NovoLog. Titrate insulin therapy. Will need ongoing monitoring / support after discharge. (8) HLD (hyperlipidemia): LDL-c could not be calculated due to hypertriglyceridemia. Direct LDL 111. Atorvastatin increased to 80 mg daily. Added fenofibrate. (9) Anemia: Chronic anemia, probably at least partly due to CKD. Hgb stable at 11.1 - 11.9. (10) Seroma after procedure: Bilateral BKA's performed at [facility] several months ago. Now being followed by Dr. Demetrio Corcoran (phone # [phone]). Recent US in clinic demonstrated apparent seroma left lateral residual limb. Drainage and wound vac were planned, but not yet done. Seroma does not appear to be infected. Avoid pressure. Best not to apply LLE prosthesis. Outpatient follow-up with Dr. Corcoran when able. (11) DVT prophylaxis: Received SQ heparin. Transitioned to SQ enoxaparin to minimize frequency of injections. (12) Discharge planning issues: Anticipated need for inpt rehab or skilled care. Case Management following. [facility] Vascular Surgery follow-up with Dr. Corcoran ([facility]). visiting and given update. Admission and Anticipated Discharge Date Admission Date: May 06, 2020 Subjective Recheck for stroke and other concerns. Patient seen in their room around 1150; visiting. Frustrated with pureed diet and difficulty communicating. Denies headache. No new neuro symptoms. Denies cough or SOB. Review of Systems: Constitutional- no fever. Cardiac- no chest pain. Pulmonary- no cough or SOB. GI- no nausea, vomiting, diarrhea, melena, hematochezia. - no urinary symptoms. Otherwise, as noted above. Physical Exam Constitutional: no acute distress Respiratory: no respiratory distress Auscultation: lungs clear to auscultation bilaterally Cardiovascular: Rate/Rhythm: regular rate and regular rhythm Heart Sounds: no gallop Vessels: no JVD Gastrointestinal (Abdomen): normal bowel sounds, soft, nontender, no hepatosplenomegaly Musculoskeletal: Extremities: + amputation noted (bilat BKA's); no cyanosis Skin: no rashes, warm and dry soft tissue L lateral residual limb, 2 cm, no erythema, drainage, or warmth Neurologic: awake alert follows commands PERRL right ptosis right facial palsy dysarthria motor strength upper extremities grossly intact Psychiatric: Orientation: alert Results & Data Results & Data ([facility]) Vital Signs (Past 12 Hours) Vital Signs Temp Pulse Resp BP Pulse Ox 05/10/20 20:14 36.9 C 83 20 137/82 97 05/10/20 15:03 37.0 C 83 22 126/59 L 92 05/10/20 12:09 36.6 C 85 20 176/84 H 92
[2020-05-11 07:39] LABS: BUN Creatinine Ratio 9.2 (10-20); Calcium 8.5 mg/dl (8.5-10.1); Creatinine Clr Calc Pharmacy 29.2 ml/min; Est GFR (African American) 46.7; Est GFR (Non-African American) 40.3; Potassium 3.9 mmol/L (3.5-5.1)
[2020-05-11] MEDS: GABAPENTIN 300 MG CAP PO SCH ×5 (09:00→21:10)
[2020-05-11] MEDS: INSULIN ASPART 100 UNITS/ML 3 ML PEN SC SCH ×4 (09:32→21:14)
[2020-05-11] MEDS: FENOFIBRATE NANOCRYSTALLIZED 145 MG TABLET PO SCH (09:33)
[2020-05-11] MEDS: SERTRALINE HCL 100 MG TABLET PO SCH (09:33)
[2020-05-11] MEDS: TAMSULOSIN HCL 0.4 MG CAP PO SCH ×2 (09:33→21:09)
[2020-05-11] MEDS: ATORVASTATIN 40 MG TAB PO SCH (09:33)
[2020-05-11] MEDS: ASPIRIN 81 MG ECTAB PO SCH (09:33)
[2020-05-11] MEDS: ENOXAPARIN INJ 40 MG/0.4 ML SYR SQ SCH (09:34)
[2020-05-11] MEDS: CLOPIDOGREL BISULFATE 75 MG TAB PO SCH (09:34)
[2020-05-11] MEDS: FERROUS SULFATE ELIX 220MG/5ML PO SCH ×3 (09:46→21:08)
--- NOTE | 2020-05-11 10:32 | Cardiology Progress Note ---
Date of Service May 11, 2020 Assessment & Plan (1) Stroke: Patient was seen in cardiology consultation due to history of recurrent strokes. There was concerned about whether not there was evidence of paroxysmal atrial fibrillation. Previous EKG in question is difficult to interpret, but I think there is perhaps low amplitude P waves present with frequent ectopy. A repeat tracing was performed today at 05/11/2020 and reviewed independently. Although the preliminary computer interpretation raises questions possible atrial fibrillation. Per my personal review. Low amplitude P waves are present, and I believe the patient is in sinus rhythm. I do not believe there is enough evidence of atrial fibrillation to commit the patient to anticoagulation I do believe ongoing dual antiplatelet therapy with aspirin clopidogrel is the best option at present. (2) Abnormal ECG: The patient is received most of his past care in the [facility] system. He does have a history of coronary heart disease, but the details are not known. EKG today does reveal repolarization changes in the precordial leads suggestive of possible ischemia, this was noted on previous EKGs within our system as well. Echocardiogram performed this admission have been reviewed independently with no regional wall motion abnormalities and normal LVEF noted. I would recommend ongoing medical management for this. He is already on aspirin, clopidogrel, carvedilol, atorvastatin, and fenofibrate. DVT prophylaxis: Continue subcutaneous heparin. Will sign off. Please contact with additional questions or concerns. Subjective Patient seen in follow-up today. He is in a good mood. He is however trying to decline his oral medications and his nurse is doing a good job "negotiating "with him. Telemetry reveals sinus rhythm in the 80 bpm range. EKG reveals sinus rhythm this morning. Physical Exam Physical Exam: Temp Pulse Resp BP Pulse Ox 36.7 C 86 22 138/72 98 05/11/20 08:13 05/11/20 08:13 05/11/20 08:13 05/11/20 08:13 05/11/20 08:13 Constitutional: No acute distress Respiratory: normal respiratory effort, lungs clear to auscultation Cardiovascular: RRR, no murmur, no edema Gastrointestinal (Abdomen): normal bowel sounds, soft, nontender, no hepatosplenomegaly Musculoskeletal: Status post bilateral below the knee amputations Neurologic: Nonconversant verbally, follows commands in the upper extremities bilaterally. Results & Data Vital Signs (Past 12 Hours) Vital Signs Temp Pulse Pulse Resp BP Pulse Ox 05/11/20 08:13 36.7 C 86 22 138/72 98 05/11/20 04:00 37.1 C 80 18 134/80 94 05/10/20 23:17 86 Laboratory Results Comprehensive Metabolic Panel 05/11/20 Range/Units 06:33 Sodium 145 (136-145) mmol/L Potassium 3.9 (3.5-5.1) mmol/L Chloride 114 H (98-107) mmol/L Carbon Dioxide 24 (21-32) mmol/L BUN 15 (7-18) mg/dl Creatinine 1.66 H (0.6-1.4) mg/dl Glucose 114 H (70-99) mg/dl Calcium 8.5 (8.5-10.1) mg/dl Intake and Output 05/10/20 05/11/20 05/11/20 22:59 06:59 14:59 Output Total 100 / 100 Balance -100 / -100 Output: Urine 100 / 100 Other: Other Intake Source sips # Unmeasured Voids 1
[2020-05-11] MEDS: NYSTATIN SUSP 500,000 U/5 ML UDC PO SCH ×3 (13:00→21:10)
--- NOTE | 2020-05-11 19:45 | Hospitalist Progress Note ---
Date of Service May 11, 2020 Assessment & Plan (1) Stroke: Acute ischemic stroke with severe dysarthria, right ptosis, right facial palsy. CT 05/06 demonstrated age-related small vessel ischemic changes, possible right temporal lesion felt most likely to be artifact, no hemorrhage. CTA head demonstrated extensive atherosclerotic disease in multiple vessels, no apparent intraluminal thrombi. CTA neck demonstrated bilateral carotid plaque with 50% stenosis right ICA and 60% stenosis left ICA; high-grade stenosis of left vertebral artery also noted. Echocardiogram did not show any apparent thrombi. EKG's initially showed NSR. ? AF on 05/07 as discussed below. LDL-c could not be calculated due to hypertriglyceridemia. Direct LDL 111. Lipid management as discussed below. PT / OT / CONSTRUCTION FLAGGER evaluations requested. Seen by Neurology. Ischemic brainstem stroke suspected. MRI could not be done because of severe claustrophobia. Dual antiplatelet therapy with ASA + clopidogrel x 21 days recommended, followed by clopidogrel alone long-term. Ongoing management of hypertension, diabetes, lipids. (2) Dysphagia: Seen by CONSTRUCTION FLAGGER. Pureed diet + thickened liquids. Aspiration precautions, including assistance with meals. (3) Abnormal ECG: EKG 05/07 interpreted as AF. Some baseline artifact. ? WAP. Reviewed with Cardiology. 12-lead EKG - possible AF vs low amplitude P waves. No definite AF on telemetry. In NSR about 1 hour after 12-lead EKG when echo was done. Insufficient data to confirm AF. EKG today read by EKG software as AF, but patient was in NSR. Patient would be very high risk for complications from anticoagulation. Anticoagulants (1) not clearly indicated and (2) relatively contraindicated. (4) CAD (coronary artery disease): Denies anginal symptoms. EKG shows nonspecific ST / T-wave changes. Continue anti-platelet therapy, carvedilol, statin. (5) HTN (hypertension): BP's high at times. Permissive hypertension in setting of acute stroke. Continue carvedilol. Titrate antihypertensive meds to achieve gradual lowering of BP. (6) CKD (chronic kidney disease), stage III: History of CKD III; underlying DM and hypertension. Creatinine has fluctuated between 1.3 and 2.3 over last 2 years. Creatinine yesterday = 1.66. Follow. (7) Diabetes mellitus, type II: DM type 2 with complications, uncontrolled. Pharmacy consulted for glycemic management. Sometimes refuses insulin dosing. Hgb A1c = 11.4. FBS today = 146. Continue Lantus + NovoLog. Titrate insulin therapy. Will need ongoing monitoring / support after discharge. (8) HLD (hyperlipidemia): LDL-c could not be calculated due to hypertriglyceridemia. Direct LDL 111. Atorvastatin increased to 80 mg daily. Added fenofibrate. (9) Anemia: Chronic anemia, probably at least partly due to CKD. Hgb stable at 11.1 - 11.9. 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 Now being followed by Dr. Demetrio Corcoran (phone # [phone]). Recent US in clinic demonstrated apparent seroma left lateral residual limb. Drainage and wound vac were planned, but not yet done. Seroma does not appear to be infected. Avoid pressure. Best not to apply LLE prosthesis. Outpatient follow-up with Dr. Corcoran when able. (11) DVT prophylaxis: Received SQ heparin. Transitioned to SQ enoxaparin to minimize frequency of injections. (12) Discharge planning issues: Anticipated need for inpt rehab or skilled care. Case Management following. [facility] follow-up with [facility]. Vascular Surgery follow-up with Dr. Corcoran ([facility]). Admission and Anticipated Discharge Date Admission Date: May 06, 2020 Subjective Recheck for stroke and other concerns. Patient seen in their room around 0830. Frustrated. Denies headache. No new neuro symptoms. Denies cough or SOB. Review of Systems: Constitutional- no fever. Cardiac- no chest pain. Pulmonary- no cough or SOB. GI- no nausea, vomiting, diarrhea, melena, hematochezia. - no urinary symptoms. Otherwise, as noted above. Physical Exam Constitutional: no acute distress Respiratory: no respiratory distress Auscultation: lungs clear to auscultation bilaterally Cardiovascular: Rate/Rhythm: regular rate and regular rhythm Heart Sounds: no gallop Vessels: no JVD Gastrointestinal (Abdomen): normal bowel sounds, soft, nontender, no hepatosplenomegaly Musculoskeletal: Extremities: + amputation noted (bilat BKA's); no cyanosis Skin: no rashes, warm and dry Neurologic: awake awake alert follows commands PERRL right ptosis improved right facial palsy dysarthria persists motor strength upper extremities- mild weakness proximally and distally Psychiatric: Orientation: alert Results & Data Results & Data ([facility]) Vital Signs (Past 12 Hours) Vital Signs Temp Pulse Pulse Resp BP Pulse Ox 05/11/20 19:12 80 139/71 98 05/11/20 16:16 85 05/11/20 15:47 36.8 C 80 18 154/66 H 97 05/11/20 11:45 36.7 C 83 20 151/73 H 94 05/11/20 08:13 36.7 C 86 22 138/72 98 05/11/20 08:00 80 Laboratory Results 05/09/20 06:22 05/11/20 06:33 ECG Additional Comments: EKG performed at 0648 reviewed and demonstrated NSR at 81 / min, slight ST dep ression and biphasic T-waves anterolaterally. (machine interpretation of EKG = AF, but P waves are present)
[2020-05-11] MEDS ORDERED: bisacodyL 10 MG SUPP PR PRN (20:44)
[2020-05-11] MEDS ORDERED: SOD PHOSPHATE/SOD BIPHOSPHATE ENEMA 132 ML BTL PR PRN (20:44)
[2020-05-11] MEDS: INSULIN DETEMIR FLEXPEN/FLEX TOUCH 100 UNITS/ML 3ML SC SCH (21:10)
[2020-05-12 06:02] LABS: Hematocrit (blood only) 31.3 % (42-52); Hemoglobin 10.2 g/dL (14.0-18.0); Mean Corpuscular Hgb Conc 32.6 g/dL (32-36); Mean Corpuscular Volume 95.1 fL (80-100); Mean Platelet Volume 10.2 fL (7.4-10.4); Platelet Count 287 K/uL (130-400); RDW Coefficient of Variation 13.4 % (11.5-14.5); Red Blood Count 3.29 M/uL (4.7-6.1); White Blood Count 9.58 K/uL (4.8-10.8)
--- NOTE | 2020-05-12 07:29 | Pharmacy Report ---
Pharmacy Glycemic Short Note 2 - Date of Service May 12, 2020 - Glycemic Short BSG Results (Last 24 hours): 05/11/20 05/11/20 05/11/20 06:33 07:29 11:24 Glucose 114 H POC Glucose 146 H 176 H 05/11/20 05/11/20 05/12/20 16:17 21:13 07:11 Glucose POC Glucose 221 H 201 H 131 H OUTPATIENT ANTIDIABETIC REGIMEN: * Levemir 25 units SQ qHS * Novolog 10 units BID with meals * A1c = 11.4% (05/07/20) ASSESSMENT: 05/12: * Patient required a total of 48 units of insulin 05/10 and 51 units yesterday * Fasting BSGs over the past 2-3 days have been well controlled. Will continue with current basal regimen * Post prandial BSGs have remained on the higher end. However, patient still eating very little. Thus I conservatively tightened the novolog correction factor yesterday and will tighten both CF/CR today, given little improvement in post prandials yesterday. * Patient did not refuse any insulin doses yesterday 05/10 * 49 units SQ insulin given over last 24 hrs while patient ordered diet however again eating poorly per documented PO intake * Fasting BSG 109 this AM with 35 units of basal insulin on board - will continue the same * Post prandial BSGs somewhat elevated yesterday - however in most cases patient had eaten very little - will lower goal range to allow for a few additional units of correction * Patient again refused nursing interventions this AM, insulin was not administered at breakfast time. 05/09 * Patient received a total of 42 units yesterday (30 basal, 12 bolus) * Fasting BSG was somewhat elevated this morning at 177 and thus an additional 5 units of levemir was given this morning. Plan to continue with once daily levemir dosing * Patient refused AM novolog, which is likely contributing to elevated lunch BSG. He did agree to lunchtime coverage. Will need to consider this in dosing going forward if patient continues to refuse. Will continue with current novolog scale as I was unable to adequately assess efficacy of this regimen given patient refusal. * Patient is ordered a diet but appears to be eating very little 05/08 * Tyshawn is a 75 yo T2DM male admitted with dysphagia and stroke like symptoms * Severe hyperglycemia at the time of admission. Glycemic control has significantly improved since then. * He received a total of 48 units of insulin yesterday (33 units basal and 15 units for bolus) * Fasting BSG of 135 mg/dL is near goal. Continue with increased dose of Lantus. * The majority of post prandial BSGs are elevated despite tightening Novolog coverage yesterday. Will further tighten today. PLAN FOR INPATIENT GLYCEMIC CONTROL: * Basal insulin- increase * Levemir 35 units SQ qHS * Bolus insulin - small increase * NovoLog per scale ACHS or Q6hrs while NPO * Goal Range: Low 110 mg/dL - High 140 mg/dL * Correction Factor: 12 mg/dL/unit * Nutritional / Prandial insulin per carb ratio of 1 unit per 5 grams CHO consumed PLAN FOR DISCHARGE: * A1c = 11.4% * Patient likely to be discharged to rehab facility or skilled care on discharge * Insulin therapy, basal/bolus would be most appropriate to control BSGs in this setting - he was using basal/bolus insulin prior to admission * Would base discharge insulin doses upon insulin needs over last 24 hrs prior to discharge
[2020-05-12] MEDS: ASPIRIN 81 MG ECTAB PO SCH (09:25)
[2020-05-12] MEDS: ATORVASTATIN 40 MG TAB PO SCH (09:25)
[2020-05-12] MEDS: TAMSULOSIN HCL 0.4 MG CAP PO SCH ×2 (09:25→20:17)
[2020-05-12] MEDS: ENOXAPARIN INJ 40 MG/0.4 ML SYR SQ SCH (09:25)
[2020-05-12] MEDS: FENOFIBRATE NANOCRYSTALLIZED 145 MG TABLET PO SCH (09:25)
[2020-05-12] MEDS: CLOPIDOGREL BISULFATE 75 MG TAB PO SCH (09:26)
[2020-05-12] MEDS: NYSTATIN SUSP 500,000 U/5 ML UDC PO SCH ×4 (09:26→20:16)
[2020-05-12] MEDS: SERTRALINE HCL 100 MG TABLET PO SCH (09:26)
[2020-05-12] MEDS: GABAPENTIN 300 MG CAP PO SCH ×4 (09:26→20:16)
[2020-05-12] MEDS: FERROUS SULFATE ELIX 220MG/5ML PO SCH ×3 (09:26→20:16)
[2020-05-12] MEDS: INSULIN ASPART 100 UNITS/ML 3 ML PEN SC SCH ×4 (09:27→21:29)
--- NOTE | 2020-05-12 17:25 | Electrocardiogram Report ---
Test Reason : Blood Pressure : / mmHG Vent. Rate : 081 BPM Atrial Rate : 081 BPM P-R Int : 000 ms QRS Dur : 088 ms QT Int : 366 ms P-R-T Axes : 000 057 100 degrees QTc Int : 425 ms Sinus rhythm with sinus arrhythmia Abnormal ECG When compared with ECG of 07-MAY-2020 07:26, Nonspecific T wave abnormality now evident in Inferior leads T wave inversion now evident in Anterior leads Confirmed by Deonte Shah ([id number]) on 05/12/2020 5:25:01 PM Referred By: REFERRED SELF Confirmed By:Constantine Shah
--- NOTE | 2020-05-12 17:28 | Electrocardiogram Report ---
Test Reason : Blood Pressure : / mmHG Vent. Rate : 080 BPM Atrial Rate : 080 BPM P-R Int : 116 ms QRS Dur : 088 ms QT Int : 354 ms P-R-T Axes : 017 053 157 degrees QTc Int : 408 ms Normal sinus rhythm Abnormal ECG When compared with ECG of 11-MAY-2020 06:48, (unconfirmed) Inverted T waves have replaced nonspecific T wave abnormality in Lateral leads Confirmed by Deonte Shah ([id number]) on 05/12/2020 5:28:35 PM Referred By: REFERRED SELF Confirmed By:Constantine Shah
[2020-05-12] MEDS: INSULIN DETEMIR FLEXPEN/FLEX TOUCH 100 UNITS/ML 3ML SC SCH (21:29)
--- NOTE | 2020-05-12 23:09 | Hospitalist Progress Note ---
Date of Service May 12, 2020 Assessment & Plan (1) Stroke: Acute ischemic stroke with severe dysarthria, right ptosis, right facial palsy. CT 05/06 demonstrated age-related small vessel ischemic changes, possible right temporal lesion felt most likely to be artifact, no hemorrhage. CTA head demonstrated extensive atherosclerotic disease in multiple vessels, no apparent intraluminal thrombi. CTA neck demonstrated bilateral carotid plaque with 50% stenosis right ICA and 60% stenosis left ICA; high-grade stenosis of left vertebral artery also noted. Echocardiogram did not show any apparent thrombi. EKG's initially showed NSR. ? AF on 05/07 as discussed below. LDL-c could not be calculated due to hypertriglyceridemia. Direct LDL 111. Lipid management as discussed below. PT / OT / PEDODONTIST evaluations requested. Seen by Neurology. Ischemic brainstem stroke suspected. MRI could not be done because of severe claustrophobia. Dual antiplatelet therapy with ASA + clopidogrel x 21 days recommended, followed by clopidogrel alone long-term. Ongoing management of hypertension, diabetes, lipids. (2) Dysphagia: Seen by PEDODONTIST. Pureed diet + thickened liquids. Aspiration precautions, including assistance with meals. (3) Abnormal ECG: EKG 05/07 interpreted as AF. Some baseline artifact. ? WAP. Reviewed with Cardiology. 12-lead EKG - possible AF vs low amplitude P waves. No definite AF on telemetry. In NSR about 1 hour after 12-lead EKG when echo was done. Insufficient data to confirm AF. EKG today read by EKG software as AF, but patient was in NSR. Patient would be very high risk for complications from anticoagulation. Anticoagulants (1) not clearly indicated and (2) relatively contraindicated. (4) CAD (coronary artery disease): Denies anginal symptoms. EKG shows nonspecific ST / T-wave changes. Continue anti-platelet therapy, carvedilol, statin. (5) HTN (hypertension): BP's high at times. Permissive hypertension in setting of acute stroke. Continue carvedilol. Titrate antihypertensive meds to achieve gradual lowering of BP. (6) CKD (chronic kidney disease), stage III: History of CKD III; underlying DM and hypertension. Creatinine has fluctuated between 1.3 and 2.3 over last 2 years. Creatinine yesterday = 1.66. Follow. (7) Diabetes mellitus, type II: DM type 2 with complications, uncontrolled. Pharmacy consulted for glycemic management. Sometimes refuses insulin dosing. Hgb A1c = 11.4. FBS today = 131. Continue Lantus + NovoLog. Titrate insulin therapy. Will need ongoing monitoring / support after discharge. (8) HLD (hyperlipidemia): LDL-c could not be calculated due to hypertriglyceridemia. Direct LDL 111. Atorvastatin increased to 80 mg daily. Added fenofibrate. (9) Anemia: Chronic anemia, probably at least partly due to CKD. Hgb stable at 11.1 - 11.9. (10) Seroma after procedure: Bilateral BKA's performed at [facility] several months ago. Now being followed by Dr. Demetrio Corcoran (phone # [phone]). Recent US in clinic demonstrated apparent seroma left lateral residual limb. Drainage and wound vac were planned, but not yet done. Seroma does not appear to be infected. Avoid pressure. Best not to apply LLE prosthesis. Outpatient follow-up with Dr. Corcoran when able. (11) DVT prophylaxis: Received SQ heparin. Transitioned to SQ enoxaparin to minimize frequency of injections. (12) Discharge planning issues: Anticipated need for inpt rehab or skilled care. Case Management following. Medical follow-up with [facility]. Vascular Surgery follow-up with Dr. Corcoran ([facility]). Admission and Anticipated Discharge Date Admission Date: May 06, 2020 Subjective Recheck for stroke and other concerns. Patient seen in their room around 1440. No new problems. Denies headache. No new neuro symptoms. Denies cough or SOB. Review of Systems: Constitutional- no fever. Cardiac- no chest pain. Pulmonary- no cough or SOB. GI- no nausea, vomiting, diarrhea, melena, hematochezia. - no urinary symptoms. Otherwise, as noted above. Physical Exam Constitutional: no acute distress Respiratory: no respiratory distress Auscultation: lungs clear to auscultation bilaterally Cardiovascular: Rate/Rhythm: regular rate and regular rhythm Heart Sounds: no gallop Vessels: no JVD Gastrointestinal (Abdomen): normal bowel sounds, soft, nontender, no hepatosplenomegaly Musculoskeletal: Extremities: + amputation noted (bilat BKA's); no cyanosis Skin: no rashes, warm and dry Neurologic: awake Speech / Cognition: + abnormal speech (dysarthric) Psychiatric: Orientation: alert Results & Data Results & Data ([facility] [place]) Vital Signs (Past 12 Hours) Vital Signs Temp Pulse Pulse Resp BP Pulse Ox 05/12/20 20:18 36.8 C 63 16 132/60 99 05/12/20 16:00 36.8 C 70 72 18 121/69 98 05/12/20 11:40 36.8 C 71 22 114/57 L 95 Laboratory Results 05/12/20 05:24 05/11/20 06:33
[2020-05-13] MEDS: INSULIN ASPART 100 UNITS/ML 3 ML PEN SC SCH ×4 (08:00→20:45)
[2020-05-13] MEDS: GABAPENTIN 300 MG CAP PO SCH ×4 (08:30→21:45)
[2020-05-13] MEDS: TAMSULOSIN HCL 0.4 MG CAP PO SCH ×2 (08:30→21:45)
[2020-05-13] MEDS: NYSTATIN SUSP 500,000 U/5 ML UDC PO SCH ×4 (08:31→21:46)
[2020-05-13] MEDS: CLOPIDOGREL BISULFATE 75 MG TAB PO SCH (08:32)
[2020-05-13] MEDS: FERROUS SULFATE ELIX 220MG/5ML PO SCH ×3 (08:32→20:44)
[2020-05-13] MEDS: ASPIRIN 81 MG ECTAB PO SCH (08:32)
[2020-05-13] MEDS: FENOFIBRATE NANOCRYSTALLIZED 145 MG TABLET PO SCH (08:32)
[2020-05-13] MEDS: SERTRALINE HCL 100 MG TABLET PO SCH (08:32)
[2020-05-13] MEDS: ATORVASTATIN 40 MG TAB PO SCH (08:32)
[2020-05-13] MEDS: ENOXAPARIN INJ 40 MG/0.4 ML SYR SQ SCH (08:32)
--- NOTE | 2020-05-13 09:10 | Pharmacy Report ---
Pharmacy Glycemic Short Note 2 - Date of Service May 13, 2020 - Glycemic Short BSG Results (Last 24 hours): 05/12/20 05/12/20 05/12/20 11:41 16:20 20:42 POC Glucose 187 H 137 H 180 H 05/13/20 05/13/20 06:16 07:16 POC Glucose 114 H 113 H OUTPATIENT ANTIDIABETIC REGIMEN: * Levemir 25 units SQ qHS * Novolog 10 units BID with meals * A1c = 11.4% (05/07/20) ASSESSMENT: 05/13: * Patient required a total of 49 units of insulin yesterday * Fasting BSG remains wnl - will continue with current basal regimen * BSG increases x2 yesterday and x1 at lunch today occurred after prior BSG was wnl, thus insufficient correction factor parameters also not likely contributing to moderate BSG increases. * Post prandial BSGs x2 still the higher end yesterday and again today at lunch. However, patient still eating very little (per charting) and CR was already tightened yesterday. Spoke w RN - patient on pureed diet and it didn't look like patient consumed significant CHO at breakfast (therefore insulin not provided), but it's possible that he did as it's difficult to estimate po intake with pureed food. Therefore BSG spikes noted at lunch today and previously may be attributable to (understandable) difficulty in accurate estimation of CHO intake when consuming pureed diet * Will keep Novolog parameters the same for now and trend. * Possible that increase in HS BSG may be due to Levemir administered at HS wearing off? Patient may benefit from transition to Lantus as inpatient. Not certain if Basaglar would be cost-prohibitive as an outpatient 05/12: * Patient required a total of 48 units of insulin 05/10 and 51 units yesterday * Fasting BSGs over the past 2-3 days have been well controlled. Will continue with current basal regimen * Post prandial BSGs have remained on the higher end. However, patient still eating very little. Thus I conservatively tightened the novolog correction factor yesterday and will tighten both CF/CR today, given little improvement in post prandials yesterday. * Patient did not refuse any insulin doses yesterday 05/10 * 49 units SQ insulin given over last 24 hrs while patient ordered diet however again eating poorly per documented PO intake * Fasting BSG 109 this AM with 35 units of basal insulin on board - will continue the same * Post prandial BSGs somewhat elevated yesterday - however in most cases patient had eaten very little - will lower goal range to allow for a few additional units of correction * Patient again refused nursing interventions this AM, insulin was not administered at breakfast time. 8 * Patient received a total of 42 units yesterday (30 basal, 12 bolus) * Fasting BSG was somewhat elevated this morning at 177 and thus an additional 5 units of levemir was given this morning. Plan to continue with once daily levemir dosing * Patient refused AM novolog, which is likely contributing to elevated lunch BSG. He did agree to lunchtime coverage. Will need to consider this in dosing going forward if patient continues to refuse. Will continue with current novolog scale as I was unable to adequately assess efficacy of this regimen given patient refusal. * Patient is ordered a diet but appears to be eating very little 05/08 * Tyshawn is a 75 yo T2DM male admitted with dysphagia and stroke like symptoms * Severe hyperglycemia at the time of admission. Glycemic control has significantly improved since then. * He received a total of 48 units of insulin yesterday (33 units basal and 15 units for bolus) * Fasting BSG of 135 mg/dL is near goal. Continue with increased dose of Lantus. * The majority of post prandial BSGs are elevated despite tightening Novolog coverage yesterday. Will further tighten today. PLAN FOR INPATIENT GLYCEMIC CONTROL: * Basal insulin * Levemir 35 units SQ qHS * Bolus insulin * NovoLog per scale ACHS or Q6hrs while NPO * Goal Range: Low 110 mg/dL - High 140 mg/dL * Correction Factor: 12 mg/dL/unit * Nutritional / Prandial insulin per carb ratio of 1 unit per 5 grams CHO consumed PLAN FOR DISCHARGE: * A1c = 11.4% * Patient likely to be discharged to rehab facility or skilled care on discharge * Insulin therapy, basal/bolus would be most appropriate to control BSGs in this setting - he was using basal/bolus insulin prior to admission * Would base discharge insulin doses upon insulin needs over last 24 hrs prior to discharge, noting that po intake has been poor for a good portion of this admission and thus adjustments as an outpatient will likely be required
--- NOTE | 2020-05-13 19:45 | Hospitalist Progress Note ---
Date of Service May 13, 2020 Assessment & Plan (1) Stroke: Acute ischemic stroke with severe dysarthria, right ptosis, right facial palsy. CT 05/06 demonstrated age-related small vessel ischemic changes, possible right temporal lesion felt most likely to be artifact, no hemorrhage. CTA head demonstrated extensive atherosclerotic disease in multiple vessels, no apparent intraluminal thrombi. CTA neck demonstrated bilateral carotid plaque with 50% stenosis right ICA and 60% stenosis left ICA; high-grade stenosis of left vertebral artery also noted. Echocardiogram did not show any apparent thrombi. EKG's initially showed NSR. ? AF on 05/07 as discussed below. LDL-c could not be calculated due to hypertriglyceridemia. Direct LDL 111. Lipid management as discussed below. PT / OT / [employer] G[employer] evaluations requested. Seen by Neurology. Ischemic brainstem stroke suspected. MRI could not be done because of severe claustrophobia. Dual antiplatelet therapy with ASA + clopidogrel x 21 days recommended, followed by clopidogrel alone long-term. Ongoing management of hypertension, diabetes, lipids. (2) Dysphagia: Seen by [employer] G[employer]ER. Pureed diet + thickened liquids. Aspiration precautions, including assistance with meals. (3) Abnormal ECG: EKG 05/07 interpreted as AF. Some baseline artifact. ? WAP. Reviewed with Cardiology. 12-lead EKG - possible AF vs low amplitude P waves. No definite AF on telemetry. In NSR about 1 hour after 12-lead EKG when echo was done. Insufficient data to confirm AF. EKG today read by EKG software as AF, but patient was in NSR. Patient would be very high risk for complications from anticoagulation. Anticoagulants (1) not clearly indicated and (2) relatively contraindicated. (4) CAD (coronary artery disease): Denies anginal symptoms. EKG shows nonspecific ST / T-wave changes. Continue anti-platelet therapy, carvedilol, statin. (5) HTN (hypertension): BP's high at times. Permissive hypertension in setting of acute stroke. Continue carvedilol. Titrate antihypertensive meds to achieve gradual lowering of BP. (6) CKD (chronic kidney disease), stage III: History of CKD III; underlying DM and hypertension. Creatinine has fluctuated between 1.3 and 2.3 over last 2 years. Creatinine 05/11 = 1.66. Follow. (7) Diabetes mellitus, type II: DM type 2 with complications, uncontrolled. Pharmacy consulted for glycemic management. Sometimes refuses insulin dosing. Hgb A1c = 11.4. FBS today = 114. Continue Lantus + NovoLog. Titrate insulin therapy. Will need ongoing monitoring / support after discharge. (8) HLD (hyperlipidemia): LDL-c could not be calculated due to hypertriglyceridemia. Direct LDL 111. Atorvastatin increased to 80 mg daily. Added fenofibrate. (9) Anemia: Chronic anemia, probably at least partly due to CKD. Hgb stable at 11.1 - 11.9. 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 Now being followed by Dr. Demetrio Corcoran (phone # [phone]). Recent US in clinic demonstrated apparent seroma left lateral residual limb. Drainage and wound vac were planned, but not yet done. Seroma does not appear to be infected. Avoid pressure. Best not to apply LLE prosthesis. Outpatient follow-up with Dr. Corcoran when able. (11) DVT prophylaxis: Received SQ heparin. Transitioned to SQ enoxaparin to minimize frequency of injections. (12) Discharge planning issues: Anticipated need for inpt rehab or skilled care. Case Management following. Medical follow-up with [facility]. Vascular Surgery follow-up with Dr. Corcoran ([facility]). Admission and Anticipated Discharge Date Admission Date: May 06, 2020 Subjective Recheck for stroke and other concerns. Patient seen in their room around 1445. Ongoing severe dysarthria, very frustrating for patient. Denies headache or new neuro symptoms. Denies cough or SOB. Review of Systems: Constitutional- no fever. Cardiac- no chest pain. Pulmonary- no cough or SOB. GI- no nausea, vomiting, diarrhea, melena, hematochezia. - no urinary symptoms. Otherwise, as noted above. Physical Exam Constitutional: no acute distress Respiratory: no respiratory distress Auscultation: lungs clear to auscultation bilaterally Cardiovascular: Rate/Rhythm: regular rate and regular rhythm Heart Sounds: no gallop Vessels: no JVD Gastrointestinal (Abdomen): normal bowel sounds, soft, nontender, no hepatosplenomegaly Musculoskeletal: Extremities: + amputation noted (bilat BKA's); no cyanosis Skin: no rashes, warm and dry Neurologic: awake Speech / Cognition: + abnormal speech (dysarthric) Cranial Nerves: PERRL; + abnormal facial strength (right facial palsy) Psychiatric: Orientation: alert Results & Data Results & Data ([facility]) Vital Signs (Past 12 Hours) Vital Signs Temp Pulse Resp BP Pulse Ox 05/13/20 19:19 36.9 C 81 19 148/80 H 95 05/13/20 15:15 36.5 C 84 19 101/60 97 05/13/20 11:52 36.7 C 85 22 138/62 93 Laboratory Results 05/12/20 05/13/20 05/13/20 20:42 06:16 07:16 POC Glucose 180 H 114 H 113 H 05/13/20 05/13/20 11:21 16:24 POC Glucose 230 H 178 H
[2020-05-13] MEDS: INSULIN DETEMIR FLEXPEN/FLEX TOUCH 100 UNITS/ML 3ML SC SCH (20:45)
[2020-05-14 06:14] LABS: Hematocrit (blood only) 32.6 % (42-52); Hemoglobin 10.6 g/dL (14.0-18.0); Mean Corpuscular Hemoglobin 31.2 pg (25-34); Mean Corpuscular Hgb Conc 32.5 g/dL (32-36); Mean Corpuscular Volume 95.9 fL (80-100); Mean Platelet Volume 10.1 fL (7.4-10.4); Platelet Count 305 K/uL (130-400); RDW Coefficient of Variation 13.5 % (11.5-14.5); RDW Standard Deviation 46.4 fL (36.4-46.3); White Blood Count 10.84 K/uL (4.8-10.8)
[2020-05-14 06:49] LABS: BUN Creatinine Ratio 9.8 (10-20); Calcium 8.9 mg/dl (8.5-10.1); Creatinine Clr Calc Pharmacy 22.8 ml/min; Est GFR (African American) 35.1; Est GFR (Non-African American) 30.3
--- NOTE | 2020-05-14 09:04 | Pharmacy Report ---
Pharmacy Glycemic Short Note 2 - Date of Service May 14, 2020 - Glycemic Short BSG Results (Last 24 hours): 05/13/20 05/13/20 05/13/20 11:21 16:24 20:16 Glucose POC Glucose 230 H 178 H 157 H 05/14/20 05/14/20 05:42 07:31 Glucose 152 H POC Glucose 168 H OUTPATIENT ANTIDIABETIC REGIMEN: * Levemir 25 units SQ qHS * Novolog 10 units BID with meals * A1c = 11.4% (05/07/20) ASSESSMENT: 05/14: * Pt received 56 units of insulin over the past 24hrs * 35 units of basal with Levemir * 21 units of bolus with NovoLog * BSGs [phone] mg/dl * Pt continues on pureed T2DM diet - minimal PO intake; difficult to determine exactly how much patient is consuming d/t pureed diet. * Post - prandial BSGs are mildly elevated; will tighten CR slightly. * Goal is to yield BSGs in the 140-179 mg/dl range. 05/13: * Patient required a total of 49 units of insulin yesterday * Fasting BSG remains wnl - will continue with current basal regimen * BSG increases x2 yesterday and x1 at lunch today occurred after prior BSG was wnl, thus insufficient correction factor parameters also not likely contributing to moderate BSG increases. * Post prandial BSGs x2 still the higher end yesterday and again today at lunch. However, patient still eating very little (per charting) and CR was already tightened yesterday. Spoke w RN - patient on pureed diet and it didn't look like patient consumed significant CHO at breakfast (therefore insulin not provided), but it's possible that he did as it's difficult to estimate po intake with pureed food. Therefore BSG spikes noted at lunch today and previously may be attributable to (understandable) difficulty in accurate estimation of CHO intake when consuming pureed diet * Will keep Novolog parameters the same for now and trend. * Possible that increase in HS BSG may be due to Levemir administered at HS wearing off? Patient may benefit from transition to Lantus as inpatient. Not certain if Basaglar would be cost-prohibitive as an outpatient 05/12: * Patient required a total of 48 units of insulin 05/10 and 51 units yesterday * Fasting BSGs over the past 2-3 days have been well controlled. Will continue with current basal regimen * Post prandial BSGs have remained on the higher end. However, patient still eating very little. Thus I conservatively tightened the novolog correction factor yesterday and will tighten both CF/CR today, given little improvement in post prandials yesterday. * Patient did not refuse any insulin doses yesterday 05/10 * 49 units SQ insulin given over last 24 hrs while patient ordered diet however again eating poorly per documented PO intake * Fasting BSG 109 this AM with 35 units of basal insulin on board - will continue the same * Post prandial BSGs somewhat elevated yesterday - however in most cases patient had eaten very little - will lower goal range to allow for a few additional units of correction * Patient again refused nursing interventions this AM, insulin was not administered at breakfast time. 05/09 * Patient received a total of 42 units yesterday (30 basal, 12 bolus) * Fasting BSG was somewhat elevated this morning at 177 and thus an additional 5 units of levemir was given this morning. Plan to continue with once daily levemir dosing * Patient refused AM novolog, which is likely contributing to elevated lunch BSG. He did agree to lunchtime coverage. Will need to consider this in dosing going forward if patient continues to refuse. Will continue with current novolog scale as I was unable to adequately assess efficacy of this regimen given patient refusal. * Patient is ordered a diet but appears to be eating very little 05/08 * Tyshawn is a 75 yo T2DM male admitted with dysphagia and stroke like symptoms * Severe hyperglycemia at the time of admission. Glycemic control has significantly improved since then. * He received a total of 48 units of insulin yesterday (33 units basal and 15 units for bolus) * Fasting BSG of 135 mg/dL is near goal. Continue with increased dose of Lantus. * The majority of post prandial BSGs are elevated despite tightening Novolog coverage yesterday. Will further tighten today. PLAN FOR INPATIENT GLYCEMIC CONTROL: * Basal insulin: no change * Levemir 35 units SQ qHS * Bolus insulin: tighten CR slightly * NovoLog per scale ACHS or Q6hrs while NPO * Goal Range: Low 110 mg/dL - High 140 mg/dL * Correction Factor: 12 mg/dL/unit * Nutritional / Prandial insulin per carb ratio of 1 unit per 4 grams CHO consumed PLAN FOR DISCHARGE: * A1c = 11.4% * Patient likely to be discharged to rehab facility or skilled care on discharge * Insulin therapy, basal/bolus would be most appropriate to control BSGs in this setting - he was using basal/bolus insulin prior to admission * Would base discharge insulin doses upon insulin needs over last 24 hrs prior to discharge, noting that po intake has been poor for a good portion of this admission and thus adjustments as an outpatient will likely be required
[2020-05-14] MEDS: TAMSULOSIN HCL 0.4 MG CAP PO SCH ×2 (09:08→20:41)
[2020-05-14] MEDS: FERROUS SULFATE ELIX 220MG/5ML PO SCH ×3 (09:08→20:48)
[2020-05-14] MEDS: ENOXAPARIN INJ 40 MG/0.4 ML SYR SQ SCH (09:09)
[2020-05-14] MEDS: CLOPIDOGREL BISULFATE 75 MG TAB PO SCH (09:09)
[2020-05-14] MEDS: ASPIRIN 81 MG ECTAB PO SCH (09:09)
[2020-05-14] MEDS: GABAPENTIN 300 MG CAP PO SCH ×4 (09:09→20:39)
[2020-05-14] MEDS: ATORVASTATIN 40 MG TAB PO SCH (09:09)
[2020-05-14] MEDS: FENOFIBRATE NANOCRYSTALLIZED 145 MG TABLET PO SCH (09:09)
[2020-05-14] MEDS: INSULIN ASPART 100 UNITS/ML 3 ML PEN SC SCH ×4 (09:10→20:48)
[2020-05-14] MEDS: SERTRALINE HCL 100 MG TABLET PO SCH (09:10)
[2020-05-14] MEDS: NYSTATIN SUSP 500,000 U/5 ML UDC PO SCH ×4 (09:12→20:40)
--- NOTE | 2020-05-14 18:23 | Hospitalist Progress Note ---
Date of Service May 14, 2020 Assessment & Plan (1) Stroke: Acute ischemic stroke with severe dysarthria, right ptosis, right facial palsy. CT 05/06 demonstrated age-related small vessel ischemic changes, possible right temporal lesion felt most likely to be artifact, no hemorrhage. CTA head demonstrated extensive atherosclerotic disease in multiple vessels, no apparent intraluminal thrombi. CTA neck demonstrated bilateral carotid plaque with 50% stenosis right ICA and 60% stenosis left ICA; high-grade stenosis of left vertebral artery also noted. Echocardiogram did not show any apparent thrombi. EKG's initially showed NSR. ? AF on 05/07 as discussed below. LDL-c could not be calculated due to hypertriglyceridemia. Direct LDL 111. Lipid management as discussed below. PT / OT / SHOT FIREMAN evaluations requested. Seen by Neurology. Ischemic brainstem stroke suspected. MRI could not be done because of severe claustrophobia. Dual antiplatelet therapy with ASA + clopidogrel x 21 days recommended, followed by clopidogrel alone long-term. Ongoing management of hypertension, diabetes, lipids. (2) Dysphagia: Seen by SHOT FIREMAN. Pureed diet + thickened liquids. Aspiration precautions, including assistance with meals. (3) Abnormal ECG: EKG 05/07 interpreted as AF. Some baseline artifact. ? WAP. Reviewed with Cardiology. 12-lead EKG - possible AF vs low amplitude P waves. No definite AF on telemetry. In NSR about 1 hour after 12-lead EKG when echo was done. Insufficient data to confirm AF. EKG today read by EKG software as AF, but patient was in NSR. Patient would be very high risk for complications from anticoagulation. Anticoagulants (1) not clearly indicated and (2) relatively contraindicated. (4) CAD (coronary artery disease): Denies anginal symptoms. EKG shows nonspecific ST / T-wave changes. Continue anti-platelet therapy, carvedilol, statin. (5) HTN (hypertension): BP's high at times. Permissive hypertension in setting of acute stroke. Continue carvedilol. Titrate antihypertensive meds to achieve gradual lowering of BP. (6) CKD (chronic kidney disease), stage III: History of CKD III; underlying DM and hypertension. Creatinine has fluctuated between 1.3 and 2.3 over last 2 years. Creatinine today = 2.1. Encourage PO fluid intake. Follow. (7) Diabetes mellitus, type II: DM type 2 with complications, uncontrolled. Pharmacy consulted for glycemic management. Sometimes refuses insulin dosing. Hgb A1c = 11.4. FBS today = 168. Continue Lantus + NovoLog. Titrate insulin therapy. Will need ongoing monitoring / support after discharge. (8) HLD (hyperlipidemia): LDL-c could not be calculated due to hypertriglyceridemia. Direct LDL 111. Atorvastatin increased to 80 mg daily. Added fenofibrate. (9) Anemia: Chronic anemia, probably at least partly due to CKD. Hgb stable at 11.1 - 11.9. (10) Seroma after procedure: Bilateral BKA's performed at [facility] several months ago. Now being followed by Dr. Demetrio Corcoran (phone # [phone]). Recent US in clinic demonstrated apparent seroma left lateral residual limb. Drainage and wound vac were planned, but not yet done. Seroma does not appear to be infected. Avoid pressure. Best not to apply LLE prosthesis. Outpatient follow-up with Dr. Corcoran when able. (11) DVT prophylaxis: Received SQ heparin. Transitioned to SQ enoxaparin to minimize frequency of injections. (12) Discharge planning issues: Anticipated need for inpt rehab or skilled care. Case Management following. Medical follow-up with [facility]. Vascular Surgery follow-up with Dr. Corcoran ([facility]). Admission and Anticipated Discharge Date Admission Date: May 06, 2020 Subjective Recheck for stroke and other concerns. Patient seen in their room around 1000. visiting. Denies headache or new neuro symptoms. Denies cough or SOB. Review of Systems: Constitutional- no fever. Cardiac- no chest pain. Pulmonary- no cough or SOB. GI- no nausea, vomiting, diarrhea, melena, hematochezia. - no urinary symptoms. Otherwise, as noted above. Physical Exam Constitutional: no acute distress Respiratory: no respiratory distress Auscultation: lungs clear to auscultation bilaterally Cardiovascular: Rate/Rhythm: regular rate and regular rhythm Heart Sounds: no gallop Vessels: no JVD Gastrointestinal (Abdomen): normal bowel sounds, soft, nontender, no hepatosplenomegaly Musculoskeletal: Extremities: + amputation noted (bilat BKA's); no cyanosis Skin: no rashes, warm and dry Neurologic: awake Speech / Cognition: + abnormal speech (dysarthric) Cranial Nerves: PERRL; + abnormal facial strength (right facial palsy) Psychiatric: Orientation: alert Results & Data Results & Data ([facility]) Vital Signs (Past 12 Hours) Vital Signs Temp Pulse Resp BP Pulse Ox 05/14/20 15:44 36.9 C 81 18 140/67 91 05/14/20 11:28 36.8 C 80 18 131/64 94 Laboratory Results 05/14/20 05:42 05/14/20 05:42
[2020-05-14] MEDS: INSULIN DETEMIR FLEXPEN/FLEX TOUCH 100 UNITS/ML 3ML SC SCH (20:43)
[2020-05-15 06:27] LABS: Hemoglobin 10.3 g/dL (14.0-18.0); Mean Corpuscular Hemoglobin 30.4 pg (25-34); Mean Corpuscular Hgb Conc 31.2 g/dL (32-36); Mean Corpuscular Volume 97.3 fL (80-100); Mean Platelet Volume 10.4 fL (7.4-10.4); Platelet Count 306 K/uL (130-400); RDW Coefficient of Variation 13.6 % (11.5-14.5); RDW Standard Deviation 47.8 fL (36.4-46.3); Red Blood Count 3.39 M/uL (4.7-6.1); White Blood Count 11.09 K/uL (4.8-10.8)
[2020-05-15 07:08] LABS: BUN Creatinine Ratio 9.4 (10-20); Calcium 8.5 mg/dl (8.5-10.1); Creatinine Clr Calc Pharmacy 24.3 ml/min; Est GFR (African American) 38.2
[2020-05-15] MEDS: INSULIN ASPART 100 UNITS/ML 3 ML PEN SC SCH ×4 (07:51→20:22)
[2020-05-15] MEDS: ENOXAPARIN INJ 40 MG/0.4 ML SYR SQ SCH (07:54)
[2020-05-15] MEDS: FERROUS SULFATE ELIX 220MG/5ML PO SCH ×3 (07:56→20:21)
[2020-05-15] MEDS: FENOFIBRATE NANOCRYSTALLIZED 145 MG TABLET PO SCH (07:56)
[2020-05-15] MEDS: ASPIRIN 81 MG ECTAB PO SCH (07:56)
[2020-05-15] MEDS: TAMSULOSIN HCL 0.4 MG CAP PO SCH ×2 (07:56→20:20)
[2020-05-15] MEDS: CLOPIDOGREL BISULFATE 75 MG TAB PO SCH (07:56)
[2020-05-15] MEDS: SERTRALINE HCL 100 MG TABLET PO SCH (07:56)
[2020-05-15] MEDS: ATORVASTATIN 40 MG TAB PO SCH (07:56)
[2020-05-15] MEDS: GABAPENTIN 300 MG CAP PO SCH ×4 (07:57→20:20)
[2020-05-15] MEDS: NYSTATIN SUSP 500,000 U/5 ML UDC PO SCH ×4 (07:57→20:19)
--- NOTE | 2020-05-15 09:25 | Pharmacy Report ---
Pharmacy Glycemic Short Note 2 - Date of Service May 15, 2020 - Glycemic Short BSG Results (Last 24 hours): 05/14/20 05/14/20 05/14/20 11:26 16:26 20:22 Glucose POC Glucose 173 H 111 H 196 H 05/15/20 05/15/20 05:30 07:01 Glucose 108 H POC Glucose 114 H OUTPATIENT ANTIDIABETIC REGIMEN: * Levemir 25 units SQ qHS * Novolog 10 units BID with meals * A1c = 11.4% (05/07/20) ASSESSMENT: 05/15: * Pt received 55 units of insulin over the past 24hrs * 35 units of basal (Levemir) * 20 units of bolus (NovoLog) * BSGs [phone] * Significant BSG drop from lunch to dinner (when BSG was above goal range).CF + CR may be too aggressive when above goal range. CR adequate when BSG is in goal range. Will loosen CF 05/14: * Pt received 56 units of insulin over the past 24hrs * 35 units of basal with Levemir * 21 units of bolus with NovoLog * BSGs [phone] mg/dl * Pt continues on pureed T2DM diet - minimal PO intake; difficult to determine exactly how much patient is consuming d/t pureed diet. * Post - prandial BSGs are mildly elevated; will tighten CR slightly. * Goal is to yield BSGs in the 140-179 mg/dl range. 05/13: * Patient required a total of 49 units of insulin yesterday * Fasting BSG remains wnl - will continue with current basal regimen * BSG increases x2 yesterday and x1 at lunch today occurred after prior BSG was wnl, thus insufficient correction factor parameters also not likely contributing to moderate BSG increases. * Post prandial BSGs x2 still the higher end yesterday and again today at lunch. However, patient still eating very little (per charting) and CR was already tightened yesterday. Spoke w RN - patient on pureed diet and it didn't look like patient consumed significant CHO at breakfast (therefore insulin not provided), but it's possible that he did as it's difficult to estimate po intake with pureed food. Therefore BSG spikes noted at lunch today and previously may be attributable to (understandable) difficulty in accurate estimation of CHO intake when consuming pureed diet * Will keep Novolog parameters the same for now and trend. * Possible that increase in HS BSG may be due to Levemir administered at HS wearing off? Patient may benefit from transition to Lantus as inpatient. Not certain if Basaglar would be cost-prohibitive as an outpatient 05/12: * Patient required a total of 48 units of insulin 05/10 and 51 units yesterday * Fasting BSGs over the past 2-3 days have been well controlled. Will continue with current basal regimen * Post prandial BSGs have remained on the higher end. However, patient still eating very little. Thus I conservatively tightened the novolog correction factor yesterday and will tighten both CF/CR today, given little improvement in post prandials yesterday. * Patient did not refuse any insulin doses yesterday 05/10 * 49 units SQ insulin given over last 24 hrs while patient ordered diet however again eating poorly per documented PO intake * Fasting BSG 109 this AM with 35 units of basal insulin on board - will continue the same * Post prandial BSGs somewhat elevated yesterday - however in most cases patient had eaten very little - will lower goal range to allow for a few additional units of correction * Patient again refused nursing interventions this AM, insulin was not administered at breakfast time. 05/09 * Patient received a total of 42 units yesterday (30 basal, 12 bolus) * Fasting BSG was somewhat elevated this morning at 177 and thus an additional 5 units of levemir was given this morning. Plan to continue with once daily levemir dosing * Patient refused AM novolog, which is likely contributing to elevated lunch BSG. He did agree to lunchtime coverage. Will need to consider this in dosing going forward if patient continues to refuse. Will continue with current novolog scale as I was unable to adequately assess efficacy of this regimen given patient refusal. * Patient is ordered a diet but appears to be eating very little 05/08 * Tyshawn is a 75 yo T2DM male admitted with dysphagia and stroke like symptoms * Severe hyperglycemia at the time of admission. Glycemic control has significantly improved since then. * He received a total of 48 units of insulin yesterday (33 units basal and 15 units for bolus) * Fasting BSG of 135 mg/dL is near goal. Continue with increased dose of Lantus. * The majority of post prandial BSGs are elevated despite tightening Novolog coverage yesterday. Will further tighten today. PLAN FOR INPATIENT GLYCEMIC CONTROL: * Basal insulin: no change * Levemir 35 units SQ qHS * Bolus insulin: loosen CF slightly * NovoLog per scale ACHS or Q6hrs while NPO * Goal Range: Low 110 mg/dL - High 140 mg/dL * Correction Factor: 15 mg/dL/unit * Nutritional / Prandial insulin per carb ratio of 1 unit per 4 grams CHO consumed PLAN FOR DISCHARGE: * A1c = 11.4% * Patient likely to be discharged to rehab facility or skilled care on discharge * Insulin therapy, basal/bolus would be most appropriate to control BSGs in this setting - he was using basal/bolus insulin prior to admission * Would base discharge insulin doses upon insulin needs over last 24 hrs prior to discharge, noting that po intake has been poor for a good portion of this admission and thus adjustments as an outpatient will likely be required
--- NOTE | 2020-05-15 10:34 | Hospitalist Progress Note ---
Date of Service May 15, 2020 Assessment & Plan (1) Stroke: Acute ischemic stroke with severe dysarthria, right ptosis, right facial palsy. CT 05/06 demonstrated age-related small vessel ischemic changes, possible right temporal lesion felt most likely to be artifact, no hemorrhage. CTA head demonstrated extensive atherosclerotic disease in multiple vessels, no apparent intraluminal thrombi. CTA neck demonstrated bilateral carotid plaque with 50% stenosis right ICA and 60% stenosis left ICA; high-grade stenosis of left vertebral artery also noted. Echocardiogram did not show any apparent thrombi. EKG's initially showed NSR. ? AF on 05/07 as discussed below. LDL-c could not be calculated due to hypertriglyceridemia. Direct LDL 111. Lipid management as discussed below. PT / OT / EDITORIAL CARTOONIST evaluations requested. Seen by Neurology. Ischemic brainstem stroke suspected. MRI could not be done because of severe claustrophobia. Dual antiplatelet therapy with ASA + clopidogrel x 21 days recommended, followed by clopidogrel alone long-term. Ongoing management of hypertension, diabetes, lipids. (2) Dysphagia: Seen by EDITORIAL CARTOONIST. Pureed diet + thickened liquids. Aspiration precautions, including assistance with meals. (3) Abnormal ECG: EKG 05/07 interpreted as AF. Some baseline artifact. ? WAP. Reviewed with Cardiology. 12-lead EKG - possible AF vs low amplitude P waves. No definite AF on telemetry. In NSR about 1 hour after 12-lead EKG when echo was done. Insufficient data to confirm AF. EKG today read by EKG software as AF, but patient was in NSR. Patient would be very high risk for complications from anticoagulation. Anticoagulants (1) not clearly indicated and (2) relatively contraindicated. (4) CAD (coronary artery disease): Denies anginal symptoms. EKG shows nonspecific ST / T-wave changes. Continue anti-platelet therapy, carvedilol, statin. (5) HTN (hypertension): BP's high at times. Permissive hypertension in setting of acute stroke. Continue carvedilol. Titrate antihypertensive meds to achieve gradual lowering of BP. (6) CKD (chronic kidney disease), stage III: History of CKD III; underlying DM and hypertension. Creatinine has fluctuated between 1.3 and 2.3 over last 2 years. Creatinine 1.88 at time of admission and justino as high as 2.1 on 05/14. Creatinine today = 1.96. Encourage PO fluid intake. Follow. (7) Hypernatremia: Serum sodium today = 147. Encourage PO fluid intake. Follow. (8) Diabetes mellitus, type II: DM type 2 with complications, uncontrolled. Pharmacy consulted for glycemic management. Sometimes refuses insulin dosing. Hgb A1c = 11.4. FBS today = 114. Continue Lantus + NovoLog. Titrate insulin therapy. Will need ongoing monitoring / support after discharge. (9) HLD (hyperlipidemia): LDL-c could not be calculated due to hypertriglyceridemia. Direct LDL 111. Atorvastatin increased to 80 mg daily. Added fenofibrate. (10) Anemia: Chronic anemia, probably at least partly due to CKD. Hgb today = 10.3. 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 Now being followed by Dr. Demetrio Corcoran (phone # [phone]). Recent US in clinic demonstrated apparent seroma left lateral residual limb. Drainage and wound vac were planned, but not yet done. Seroma does not appear to be infected. Avoid pressure. Best not to apply LLE prosthesis. Outpatient follow-up with Dr. Corcoran when able. (12) DVT prophylaxis: Received SQ heparin. Transitioned to SQ enoxaparin to minimize frequency of injections. (13) Discharge planning issues: Anticipated need for inpt rehab or skilled care. Case Management following. COVID-19 testing requested for placement. SARS-CoV-2 PCR pending. Medical follow-up with [facility]. Vascular Surgery follow-up with Dr. Corcoran ([facility]). Admission and Anticipated Discharge Date Admission Date: May 06, 2020 Subjective Recheck for stroke and other concerns. Patient seen in their room around 0940 No new problems. Denies any signs of aspiration. Review of Systems: Constitutional- no fever. Cardiac- no chest pain. Pulmonary- no cough or SOB. GI- 1 loose stool yesterday; no nausea, vomiting, melena, hematochezia. - no urinary symptoms. Otherwise, as noted above. Physical Exam Constitutional: no acute distress Respiratory: no respiratory distress Auscultation: lungs clear to auscultation bilaterally Cardiovascular: Rate/Rhythm: regular rate and regular rhythm Heart Sounds: no gallop Vessels: no JVD Gastrointestinal (Abdomen): normal bowel sounds, soft, nontender, no hepatosplenomegaly Musculoskeletal: Extremities: + amputation noted (bilat BKA's); no cyanosis Skin: no rashes, warm and dry Neurologic: awake Speech / Cognition: + abnormal speech (dysarthric) Cranial Nerves: PERRL; + abnormal facial strength (right facial palsy) Psychiatric: Orientation: alert Results & Data Results & Data ([facility]) Vital Signs (Past 12 Hours) Vital Signs Temp Pulse Pulse Resp BP Pulse Ox 05/15/20 03:20 37.1 C 80 18 121/84 95 05/14/20 23:31 75 05/14/20 23:20 36.8 C 78 16 150/74 H 96 Laboratory Results 05/15/20 05:30 05/15/20 05:30
[2020-05-15] MEDS: carvediloL 12.5 MG TAB PO SCH (20:20)
[2020-05-15] MEDS: INSULIN DETEMIR FLEXPEN/FLEX TOUCH 100 UNITS/ML 3ML SC SCH (20:23)
[2020-05-16] MEDS: TAMSULOSIN HCL 0.4 MG CAP PO SCH ×2 (08:18→20:53)
[2020-05-16] MEDS: GABAPENTIN 300 MG CAP PO SCH ×5 (08:18→20:53)
[2020-05-16] MEDS: carvediloL 12.5 MG TAB PO SCH (08:18)
[2020-05-16] MEDS: CLOPIDOGREL BISULFATE 75 MG TAB PO SCH (08:19)
[2020-05-16] MEDS: ASPIRIN 81 MG ECTAB PO SCH (08:19)
[2020-05-16] MEDS: FENOFIBRATE NANOCRYSTALLIZED 145 MG TABLET PO SCH (08:19)
[2020-05-16] MEDS: ATORVASTATIN 40 MG TAB PO SCH (08:19)
[2020-05-16] MEDS: SERTRALINE HCL 100 MG TABLET PO SCH (08:19)
[2020-05-16] MEDS: NYSTATIN SUSP 500,000 U/5 ML UDC PO SCH ×5 (08:20→20:54)
[2020-05-16] MEDS: ENOXAPARIN INJ 40 MG/0.4 ML SYR SQ SCH (08:20)
[2020-05-16] MEDS: INSULIN ASPART 100 UNITS/ML 3 ML PEN SC SCH ×4 (08:30→20:47)
[2020-05-16 08:36] LABS: BUN Creatinine Ratio 10.1 (10-20); Calcium 8.7 mg/dl (8.5-10.1); Creatinine Clr Calc Pharmacy 23.4 ml/min; Est GFR (African American) 35.7; Est GFR (Non-African American) 30.8; Potassium 4.1 mmol/L (3.5-5.1)
[2020-05-16 08:52] LABS: Folate (Folic Acid) 11.78 ng/ml (>5.38)
[2020-05-16] MEDS: FERROUS SULFATE ELIX 220MG/5ML PO SCH ×3 (10:05→20:53)
--- NOTE | 2020-05-16 13:59 | Hospitalist Progress Note ---
Date of Service May 16, 2020 Assessment & Plan (1) Stroke: Acute ischemic stroke with severe dysarthria, right ptosis, right facial palsy. CT 05/06 demonstrated age-related small vessel ischemic changes, possible right temporal lesion felt most likely to be artifact, no hemorrhage. CTA head demonstrated extensive atherosclerotic disease in multiple vessels, no apparent intraluminal thrombi. CTA neck demonstrated bilateral carotid plaque with 50% stenosis right ICA and 60% stenosis left ICA; high-grade stenosis of left vertebral artery also noted. Echocardiogram did not show any apparent thrombi. EKG's initially showed NSR. ? AF on 05/07 as discussed below. LDL-c could not be calculated due to hypertriglyceridemia. Direct LDL 111. Lipid management as discussed below. PT / OT / BULK PIGMENT REDUCER evaluations requested. Seen by Neurology. Ischemic brainstem stroke suspected. MRI could not be done because of severe claustrophobia. Dual antiplatelet therapy with ASA + clopidogrel x 21 days recommended, followed by clopidogrel alone long-term. As discussed below, it was felt that anticoagulation not indicated. Ongoing management of hypertension, diabetes, lipids. (2) Dysphagia: Seen by BULK PIGMENT REDUCER. Pureed diet + thickened liquids. Aspiration precautions, including direct assistance with meals. (3) Abnormal ECG: EKG 05/07 interpreted as AF. Some baseline artifact. ? WAP. Reviewed with Cardiology. 12-lead EKG - possible AF vs low amplitude P waves. No definite AF on telemetry. In NSR about 1 hour after 12-lead EKG when echo was done. Insufficient data to confirm AF. EKG today read by EKG software as AF, but patient was in NSR. Patient would be very high risk for complications from anticoagulation. Anticoagulants (1) not clearly indicated and (2) relatively contraindicated. (4) CAD (coronary artery disease): Denies anginal symptoms. EKG shows nonspecific ST / T-wave changes. Continue anti-platelet therapy, carvedilol, statin. (5) HTN (hypertension): BP's high at times. Permissive hypertension allowed initially in setting of acute stroke. BP's morning of discharge 107/61, 100/62. Continue carvedilol, but decrease dose to 6.125 mg BID. (6) CKD (chronic kidney disease), stage III: History of CKD III; underlying DM and hypertension. Creatinine has fluctuated between 1.3 and 2.3 over last 2 years. Creatinine 1.88 at time of admission and justino as high as 2.1 on 05/14. Creatinine day of discharge = 2.07. Encourage PO fluid intake. Follow. (7) Hypernatremia: Serum sodium as high as 147. Encouraged PO fluid intake. Serum sodium day of discharge 142. Follow. (8) Diabetes mellitus, type II: DM type 2 with complications, uncontrolled. Pharmacy consulted for glycemic management. Sometimes refuses insulin dosing. Hgb A1c = 11.4. FBS today day of discharge 138. Continue Lantus + NovoLog. Will need ongoing monitoring / support after discharge. (9) HLD (hyperlipidemia): LDL-c could not be calculated due to hypertriglyceridemia. Direct LDL 111. Atorvastatin increased to 80 mg daily. Added fenofibrate. (10) Anemia: Chronic anemia, probably at least partly due to CKD. Anemia w/u: 05/16/20 05/16/20 07:39 07:39 Iron 30 L Transferrin 175 L Transferrin % Sat 12 L Ferritin 751.0 H Vitamin B12 767 Folate 11.78 Hgb 05/15 = 10.3. Continue ferrous sulfate. Follow. (11) Seroma after procedure: Bilateral BKA's performed at [facility] several months ago. Now being followed by Dr. Demetrio Corcoran (phone # [phone]). Recent US in clinic demonstrated apparent seroma left lateral residual limb. Drainage and wound vac were planned, but not yet done. Seroma does not appear to be infected. Avoid pressure. Best not to apply LLE prosthesis. Outpatient follow-up with Dr. Corcoran when able. (12) DVT prophylaxis: Received SQ heparin. Transitioned to SQ enoxaparin to minimize frequency of injections. Nonambulatory due to bilat BKA status. There are no supporting guidelines, but there may be some benefit in continuing prophylaxis for a month or so after discharge. Suggest SQ enoxaparin 30 mg daily (reduced dose due to CKD). (13) Discharge planning issues: Needs rehab. Case Management following. COVID-19 testing requested for placement. SARS-CoV-2 PCR collected 05/12/20 negative. [facility] [place] Report given to provider there by the undersigned. Vascular Surgery follow-up with Dr. Corcoran ([facility]). Admission and Anticipated Discharge Date Admission Date: May 06, 2020 Subjective Recheck for stroke and other concerns. Patient seen in their room around 1300. No new problems. Denies any signs of aspiration. Review of Systems: Constitutional- no fever. Cardiac- no chest pain. Pulmonary- no cough or SOB. GI- 1 loose stool 2 days ago, none reported since; no nausea, vomiting, melena, hematochezia. - no urinary symptoms. Otherwise, as noted above. Physical Exam Constitutional: no acute distress Respiratory: no respiratory distress Auscultation: lungs clear to auscultation bilaterally Cardiovascular: Rate/Rhythm: regular rate and regular rhythm Heart Sounds: no gallop Vessels: no JVD Gastrointestinal (Abdomen): normal bowel sounds, soft, nontender, no hepatosplenomegaly Musculoskeletal: Extremities: + amputation noted (bilat BKA's); no cyanosis Skin: no rashes, warm and dry seroma left lateral residual limb without erythema, warmth, or drainage Neurologic: awake Speech / Cognition: + abnormal speech (dysarthric) Motor/Sensory: + abnormal movement (? mild weakness RUE) Cranial Nerves: PERRL; + abnormal facial strength (right facial palsy) Psychiatric: Orientation: alert frustrated, but good-natured Results & Data Results & Data ([facility]) Vital Signs (Past 12 Hours) Vital Signs Temp Pulse Pulse Resp BP Pulse Ox 05/16/20 11:08 36.4 C L 54 L 18 100/62 98 05/16/20 08:00 63 05/16/20 07:30 55 L 05/16/20 07:20 36.7 C 59 L 18 107/61 96 05/16/20 03:17 36.5 C 59 L 20 108/68 95 Laboratory Results 05/16/20 07:39
--- NOTE | 2020-05-16 15:07 | Discharge Summary ---
Date of Service Date of Admission: 05/06/20 Date of Discharge: 05/16/20 Admission HPI Per Admitting Provider Pt is 75 y/o M with PMH CVA, DM II, HTN, HLD, CAD s/p stent, PVD, s/p bilateral BKA, CKD III presented to ER for right arm weakness and dysphasia. History obtained from ER staff and patient's . Limited history can be obtained from patient secondary to dysphasia. Was able to speak with pt's on the phone. She reports pt was up and out to a doctor's appointment today around 7 AM. Patient's states that patient seemed "not acting right this morning" he was not talking much. Reports returned home around 9 AM today and noticed that patient's speech was garbled and then he could no longer talk. She reports they later called EMS and patient was transported to [facility] ER. Upon ER arrival patient with expressive aphasia, dysarthria, right facial droop, right arm weakness. 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 Neuro tele stroke consulted and patient outside [facility]PA window. Patient is able to shake head "yes or no" to questions. He denies headache, dizziness, vision changes. Reports decreased sensation to right side of face with palpation. He points to lower abdomen as area of discomfort. Denies nausea, vomiting, diarrhea, fever, chills, dysuria, hematuria. Patient's reports that patient took his morning medicines today. Pt has prosthetics legs however hasn't been using. Pt has med list from [facility] dated 05/02/2020. Principal Diagnosis ischemic brainstem stroke Discharge Data Allergies Allergy/AdvReac Type Severity Reaction Status Date / Time No Known Allergies Allergy Unknown NONE Verified 05/06/20 13:38 Consultations 05/06/20 14:02 ED Decision to Admit Stat 05/06/20 15:50 Consult Case Management - Discharge Planning Routine Consult Neurology Routine 05/08/20 14:27 Consult Health Information Management Routine 05/10/20 11:18 Consult Cardiology Routine Ordered Studies 05/06/20 12:21 CT angio head w con Stat CT angio neck with con Stat CT head/brain wo con Stat 05/09/20 08:00 CT head/brain wo con Routine Hospital Course (1) Stroke: Acute ischemic stroke with severe dysarthria, right ptosis, right facial palsy. CT 05/06 demonstrated age-related small vessel ischemic changes, possible right temporal lesion felt most likely to be artifact, no hemorrhage. CTA head demonstrated extensive atherosclerotic disease in multiple vessels, no apparent intraluminal thrombi. CTA neck demonstrated bilateral carotid plaque with 50% stenosis right ICA and 60% stenosis left ICA; high-grade stenosis of left vertebral artery also noted. Echocardiogram did not show any apparent thrombi. EKG's initially showed NSR. ? AF on 05/07 as discussed below. LDL-c could not be calculated due to hypertriglyceridemia. Direct LDL 111. Lipid management as discussed below. PT / OT / SALON RECEPTIONIST evaluations requested. Seen by Neurology. Ischemic brainstem stroke suspected. MRI could not be done because of severe claustrophobia. Dual antiplatelet therapy with ASA + clopidogrel x 21 days recommended, followed by clopidogrel alone long-term. As discussed below, it was felt that anticoagulation not indicated. Ongoing management of hypertension, diabetes, lipids. (2) Carotid artery disease: CTA neck demonstrated bilateral carotid plaque with 50% stenosis right ICA and 60% stenosis left ICA; high-grade stenosis of left vertebral artery also noted. Management as discussed above. Follow. Suggest carotid duplex in 3 months. (3) Dysphagia: Seen by SALON RECEPTIONIST. Pureed diet + thickened liquids. Aspiration precautions, including direct assistance with meals. (4) Abnormal ECG: EKG 05/07 interpreted as AF. Some baseline artifact. ? WAP. Reviewed with Cardiology. 12-lead EKG - possible AF vs low amplitude P waves. No definite AF on telemetry. In NSR about 1 hour after 12-lead EKG when echo was done. Insufficient data to confirm AF. EKG today read by EKG software as AF, but patient was in NSR. Patient would be very high risk for complications from anticoagulation. Anticoagulants (1) not clearly indicated and (2) relatively contraindicated. (5) CAD (coronary artery disease): Denies anginal symptoms. EKG shows nonspecific ST / T-wave changes. Continue anti-platelet therapy, carvedilol, statin. (6) HTN (hypertension): BP's high at times. Permissive hypertension allowed initially in setting of acute stroke. BP's morning of discharge 107/61, 100/62. Continue carvedilol, but decrease dose to 6.125 mg BID. (7) CKD (chronic kidney disease), stage III: History of CKD III; underlying DM and hypertension. Creatinine has fluctuated between 1.3 and 2.3 over last 2 years. Creatinine 1.88 at time of admission and justino as high as 2.1 on 05/14. Creatinine day of discharge = 2.07. Encourage PO fluid intake. Follow. (8) Hypernatremia: Serum sodium as high as 147. Encouraged PO fluid intake. Serum sodium day of discharge 142. Follow. (9) Diabetes mellitus, type II: DM type 2 with complications, uncontrolled. Pharmacy consulted for glycemic management. Sometimes refuses insulin dosing. Hgb A1c = 11.4. FBS today day of discharge 138. Continue Lantus + NovoLog. Will need ongoing monitoring / support after discharge. (10) HLD (hyperlipidemia): LDL-c could not be calculated due to hypertriglyceridemia. Direct LDL 111. Atorvastatin increased to 80 mg daily. Added fenofibrate. (11) Anemia: Chronic anemia, probably at least partly due to CKD. Anemia w/u: 05/16/20 05/16/20 07:39 07:39 Iron 30 L Transferrin 175 L Transferrin % Sat 12 L Ferritin 751.0 H Vitamin B12 767 Folate 11.78 Hgb 05/15 = 10.3. Continue ferrous sulfate. Follow. (12) Seroma after procedure: Bilateral BKA's performed at [facility] several months ago. Now being followed by Dr. Demetrio Corcoran (phone # [phone]). Recent US in clinic demonstrated apparent seroma left lateral residual limb. Drainage and wound vac were planned, but not yet done. Seroma does not appear to be infected. Avoid pressure. Best not to apply LLE prosthesis. Outpatient follow-up with Dr. Corcoran when able. (13) DVT prophylaxis: Received SQ heparin. Transitioned to SQ enoxaparin to minimize frequency of injections. Nonambulatory due to bilat BKA status. There are no supporting guidelines, but there may be some benefit in continuing prophylaxis for a month or so after discharge. Suggest SQ enoxaparin 30 mg daily (reduced dose due to CKD). (14) Discharge planning issues: Needs rehab. Case Management following. COVID-19 testing requested for placement. SARS-CoV-2 PCR collected 05/12/20 negative. Arrangements are being made for transfer to [facility] in [place]. Report given to provider there by the undersigned. Vascular Surgery follow-up with Dr. Corcoran ([facility]). Total Time Total Time Spent Total Time Spent (In Minutes): 50 Discharge Plan Discharge Items Reason For Visit: stroke like symptoms Discharge Diagnosis: suspected brainstem ischemic stroke Condition on Discharge: Good Activity: As commented below Activity Comment: Bed-chair as tolerated with assistance. Non-emergency contact: Primary Care Provider and Hospitalist Call non-emergency contact if: you have any medication questions Follow-up/Referrals: PCP,NO [Primary Care Provider] - Diet: Carb Consistent or DM2 and Heart Healthy Diet Texture: Pureed (blended smooth) Liquid Consistency: Kappa thick Addtl Attending Provider Instructions: PT / OT / SALON RECEPTIONIST Aspiration precautions. PO intake only with direct supervision. Fall precautions. Skin precautions. Reposition at least q 2 hours. Do not apply LLE prosthesis. Please inspect seroma left residual limb daily for signs of infection and contact Dr. Mcgowan (Vascular Surgery, [facility]) if any concerns. Please check fingerstick blood sugars AC + HS. Scale for NovoLog with meals: blood sugar units NovoLog SQ < 101 none 101-150 4 151-200 6 201-250 8 > 250 10 Please monitor basic metabolic profile & CBC weekly until stable, then as clinically indicated. Thank you for receiving this patient in transfer. Please call if you have any questions. Edd Adkins Pending Studies at Discharge: No Stand-Alone Forms: My [employer] Skilled Items Patient informed of condition?: Yes DNR: No Discharge Level of Care: Skilled Communicable Disease: No Discharge Prognosis: Improving Lines: None Urinary Catheter: No Medications and DC Order Prescriptions: New insulin aspart U-100 [Novolog Flexpen U-100 Insulin] 100 unit/mL (3 mL) Insulin Pen See Rx Instructions .ROUTE .COMPLEX Qty: 10 RF: 0 Levemir FlexTouch U-100 Insuln 100 unit/mL (3 mL) Insulin Pen 35 unit SC QPM Qty: 10 RF: 0 Pharmacist Discharge Consult [Pharmacist Discharge Med Rec Consult] 1 unit N/A UD PRN (Reason: stroke DC) Qty: 1 RF: 0 fenofibrate nanocrystallized 145 mg Tablet 145 mg PO QAM Qty: 30 RF: 0 clopidogrel 75 mg Tablet 75 mg PO QAM 30 Days Qty: 30 RF: 0 carvedilol 6.25 mg tablet 6.25 mg PO BID Qty: 60 RF: 0 atorvastatin 80 mg tablet 80 mg PO DAILY Qty: 30 RF: 0 enoxaparin 30 mg/0.3 mL syringe 30 mg SQ DAILY 30 Days Qty: 9 RF: 0 Continued acetaminophen [Children's Tylenol] 160 mg/5 mL Suspension 0 mg PO QID PRN (Reason: Pain) RF: 0 calcium carbonate [Tums Extra Strength Smoothies] 300 mg (750 mg) Tablet,Chewable 300 mg PO UD RF: 0 melatonin 3 mg Tablet 6 mg PO HS PRN (Reason: Sleep) RF: 0 sertraline 20 mg/mL Concentrate 100 mg PO DAILY RF: 0 alum-mag hydroxide-simeth [Mintox Maximum Strength] 400-400-40 mg/5 mL Suspension 10 ml PO TID PRN (Reason: GERD) RF: 0 Centrum 9 mg iron/ 15 mL (15 mL) Liquid 5 ml PO DAILY RF: 0 bethanechol chloride 25 mg Tablet 25 mg PO TID RF: 0 ascorbic acid (vitamin C) 500 mg Tablet 500 mg PO TID RF: 0 tamsulosin [Flomax] 0.4 mg Capsule 0.4 mg PO BID RF: 0 gabapentin 300 mg Capsule 300 mg PO QID RF: 0 aspirin [Aspirin Childrens] 81 mg Tablet,Chewable 81 mg PO DAILY RF: 0 cholecalciferol (vitamin D3) [Vitamin D3] 25 mcg (1,000 unit) Tablet 50 mcg PO DAILY RF: 0 ferrous sulfate 220 mg (44 mg iron)/5 mL Solution 220 mg PO TID RF: 0 Discontinued atorvastatin 80 mg Tablet 40 mg PO HS RF: 0 carvedilol 25 mg Tablet 12.5 mg PO BID RF: 0 insulin aspart U-100 [Novolog Flexpen U-100 Insulin] 100 unit/mL (3 mL) Insulin Pen 10 unit SUBCUT BIDM RF: 0 insulin detemir U-100 100 unit/mL (3 mL) Insulin Pen 25 unit SUBCUT HS RF: 0 Krames/Other Patient Handouts: Long-Term Complications of Diabetes, Managing Type 2 Diabetes, Diabetes: Meal Planning Admission Data Admit Date/Time: 05/06/20 14:25 Attending Provider: Edd Adkins Admit Provider: Ziggy Padilla Primary Care Provider: PCP,NO Other Providers: Allison Staley ; Ziggy Padilla ; Aki Khan ; Henok Cui
[2020-05-16] MEDS ORDERED: STROKE PATIENT DISCHARGE STA (15:11)
--- NOTE | 2020-05-16 17:24 | Communication Note ---
Date of Service: May 16, 2020 Patient unable to return home safely at this time. He is a high aspiration risk, needs intensive OT & GRADE FOREMAN, and requires 2-person assist for care. Arrangements were made for transfer to [facility]. Patient and were aware of the plans being made; patient appeared to be in agreement. Transportation crew arrived and patient suddenly announced that he wanted to go home and refused to be transferred to [facility]. Tried to explain to him that discharge to home is not a safe option at this time. He would not change his mind. Difficult to assess patient's decision making capacity in light of his severe dysarthria. Mrs. Goetz was given update and was understandably upset. She understands that she cannot care for him at home at this time. Transfer was cancelled. Will need to discuss status and options further with Case Management.
[2020-05-16] MEDS: INSULIN DETEMIR FLEXPEN/FLEX TOUCH 100 UNITS/ML 3ML SC SCH (20:50)
[2020-05-17] MEDS: NYSTATIN SUSP 500,000 U/5 ML UDC PO SCH ×2 (07:53→12:21)
[2020-05-17] MEDS: FERROUS SULFATE ELIX 220MG/5ML PO SCH (07:54)
[2020-05-17] MEDS: GABAPENTIN 300 MG CAP PO SCH ×2 (07:54→12:21)
[2020-05-17] MEDS: ASPIRIN 81 MG ECTAB PO SCH (07:54)
[2020-05-17] MEDS: CLOPIDOGREL BISULFATE 75 MG TAB PO SCH (07:55)
[2020-05-17] MEDS: ATORVASTATIN 40 MG TAB PO SCH (07:55)
[2020-05-17] MEDS: TAMSULOSIN HCL 0.4 MG CAP PO SCH (07:55)
[2020-05-17] MEDS: FENOFIBRATE NANOCRYSTALLIZED 145 MG TABLET PO SCH (07:56)
[2020-05-17] MEDS: ENOXAPARIN INJ 40 MG/0.4 ML SYR SQ SCH (07:56)
[2020-05-17] MEDS: SERTRALINE HCL 100 MG TABLET PO SCH (07:57)
[2020-05-17] MEDS: INSULIN ASPART 100 UNITS/ML 3 ML PEN SC SCH ×2 (08:39→12:27)
[2020-05-17] MEDS ORDERED: STROKE PATIENT DISCHARGE STA (12:02)
--- NOTE | 2020-05-17 12:08 | Hospitalist Progress Note ---
Date of Service May 17, 2020 Assessment & Plan (1) Stroke: Acute Ischemic Stroke --CT Head:No acute intracranial hemorrhage or midline shift. Ill-defined low- attenuation of the right temporal lobe is likely artifactual. A subtle acute infarct is considered less likely. Age-related involutional changes with chronic microvascular ischemic disease and multiple remote infarcts as above. --Head CTA: No intraluminal thrombus or abrupt vessel cut off identified. Severe multifocal stenoses within the intracranial vessels, as detailed above. Specifically, severe stenosis of the proximal intracranial portion of the left vertebral artery and the left posterior cerebral artery. No intracranial aneurysm. --Neck CTA: Mixed plaque of the bilateral carotid bulbs and proximal internal carotid arteries, left greater than right. This results in less than 50% stenosis on the right and approximately 60% stenosis of the proximal left ICA. Calcific plaque of the V4 segment left vertebral artery results in high-grade stenosis. --ECHO: No thrombus, ASD Repeat CT Head: No acute intracranial abnormality. Chronic and age-related change. --Could not obtain MRI due to severe claustrophobia --Appreciate Neurology Input --PT/OT Speech eval done --Aspiration/Fall precautions --Continue aspirin, Plavix for 21 days and then plavix for rest of life --Needs follow up with Neurology upon discharge (2) Carotid artery disease: CTA neck as above Needs repeat imaging in 3 months. Continue aspirin, plavix, statin (3) Dysphagia: Evaluated by speech therapy Continue Pureed diet with thickened liquids. Aspiration precautions (4) Abnormal ECG: As per EKG 05/07 interpreted as AF. Some baseline artifact. ? WAP. Reviewed with Cardiology. 12-lead EKG - possible AF vs low amplitude P waves. No definite AF on telemetry. In NSR about 1 hour after 12-lead EKG when echo was done. Insufficient data to confirm AF. EKG read by EKG software as AF, but patient was in NSR. Patient would be very high risk for complications from anticoagulation. Anticoagulants (1) not clearly indicated and (2) relatively contraindicated. Currently in Sinus rhythm (5) CAD (coronary artery disease): EKG shows nonspecific ST / T-wave changes. Continue aspirin, carvedilol, statin. (6) HTN (hypertension): Permissive hypertension allowed initially in setting of acute stroke. BP stable Continue carvedilol at decreased march of 6.125 mg BID. (7) CKD (chronic kidney disease), stage III: Cr levels variable Monitor renal function Avoid Nephrotoxic agents as able (8) Hypernatremia: Resolved Monitor (9) Diabetes mellitus, type II: As per DM Type II with complications, uncontrolled. Pharmacy consulted for glycemic management. Sometimes refuses insulin dosing. Hgb A1c = 11.4. FBS today day of discharge 138. Continue Lantus + NovoLog. Will need ongoing monitoring / support after discharge. (10) HLD (hyperlipidemia): Continue Atorvastatin, fenofibrate (11) Anemia: Chronic anemia Hb stable Continue ferrous sulfate. 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 Now being followed by Dr. Demetrio Corcoran (phone # [phone]). Recent US in clinic demonstrated apparent seroma left lateral residual limb. Drainage and wound vac were planned, but not yet done. Seroma does not appear to be infected. Avoid pressure. Best not to apply LLE prosthesis. Outpatient follow-up with Dr. Corcoran when able. (13) DVT prophylaxis: Lovenox SQ (14) Discharge planning issues: SNF Admission and Anticipated Discharge Date Admission Date: May 06, 2020 Subjective Patient is seen and examined at bedside Offers no new complaints Still has significant dysarthria Agrees to go to SNF Family at bedside Denies chest pain, shortness of breath, dizziness, nausea, abdominal pain Review of Systems Review of Systems: All systems reviewed & are unremarkable except as noted in HPI & below Physical Exam Physical Exam: Physical Exam: Vitals signs as noted above General Appearance:Moderately built and nourished, no apparent distress Head: normocephalic, Atraumatic Eyes: normal inspection, EOMI Neck: supple, Trachea midline Respiratory/Chest: Normal breath sounds, CTA Cardiovascular: S1, S2, No murmur Abdomen/GI:Soft, Non tender, Bowel sounds present Extremities/Musculoskelatal:normal inspection, no edema, + B/L BKA, LLE Seroma Neurologic/Psych:Alert, awake, oriented, + dysarthria, +Facial droop Skin: normal color, warm Results & Data Results & Data ([facility]) Vital Signs (Past 12 Hours) Vital Signs Temp Pulse Pulse Resp BP Pulse Ox 05/17/20 09:00 62 05/17/20 07:01 36.8 C 60 18 126/70 97 05/17/20 04:03 36.6 C 64 18 117/67 94
== END 2020-05-17 12:45 | DRG 65 ==
LOC: ED 12:25 → SUATTDRO 14:25 → 2E 14:25 → 2W 05-15 12:42